=== PATIENT | male | born 1980 | race Caucasian/White ===

== ENCOUNTER 2021-04-03 10:48 | Outpatient (REF) | payer BC, SELFPAY ==
[2021-04-03 14:22] LABS: Glucose Urine UA NEG (NEG); Leukocyte Esterase Urine NEG (NEG); Nitrite Urine NEG (NEG); Specific Gravity - Urine 1.015 (1.005-1.025); Urine Blood NEG (NEG); Urine Ketones NEG (NEG); Urine Protein TRACE MG/DL (NEG-TRACE)
[2021-04-03 14:26] LABS: Appearance Urine CLEAR; Color Urine YELLOW
[2021-04-03 15:07] LABS: Alanine Aminotransferase 56 U/L (0-40); Albumin Level 4.5 g/dL (3.5-5.0); Alkaline Phosphatase 105 U/L (39-117); Anion Gap 12 (12-20); Aspartate Amino Transferase 43 U/L (5-37); Bilirubin Total 0.4 mg/dL (0.0-1.0); Blood Urea Nitrogen 9 mg/dL (9-16); Calcium 9.5 mg/dL (8.4-10.2); Carbon Dioxide 28 mmol/L (22-29); Chloride 104 mmol/L (96-108); Cholesterol 208 mg/dL; Estimated Glomerular Filt Rate > 60; Glucose Fasting 95 mg/dL (60-99); HDL Cholesterol 57 mg/dL; LDL Cholesterol Calculated 118 mg/dl; Potassium 4.2 mmol/L (3.3-5.1); Sodium 140 mmol/L (135-145); Total Protein 7.4 g/dL (6.5-8.0); Triglycerides 166 mg/dL
== END 2021-04-03 10:49 | disposition home or self-care (01) ==
LOC: HO.WFDLDS 10:48
PROVIDERS: Visit Provider Family Medicine
DX: Z00.00 Encounter for general adult medical examination without abnormal findings (principal)
CPT/HCPCS: 36415; 80053; 80061; 81003; 84443

== ENCOUNTER → 2021-07-14 13:43 | Outpatient (BNVA) | payer OTHER, SELFPAY | PROVIDERS: PCP Family Medicine; Visit Provider Nurse Practitioner ==

== ENCOUNTER 2021-09-25 08:27 | Day surgery (SDC) | payer OTHER, SELFPAY ==
[2021-09-18 16:16] VITALS: BMI 40.0
--- NOTE | 2021-09-24 10:32 | P.CONAN_ITS ---
Documented by User: Paty Brower NP 09/24/21 10:34 HPI - Anesthesia Eval Consult details Narrative: 41yo M for Upper Endoscopy and Colonoscopy [facility] Active Problems Active Problems: All Active Problems (Updated 07/14/21 @ 14:54 by JOAN Ravi) Morbid obesity (Acute) Family history of colon cancer in father (Acute) Annual physical exam (Acute) Elevated transaminase level (Acute) History of Solano's esophagus (Acute) Laboratory examination ordered as part of a routine general medical examination (Acute) GERD (gastroesophageal reflux disease) (Acute) Obesity, morbid, BMI 40.0-49.9 (Acute) Past Medical History Medical History (Updated 09/24/21 @ 10:33 by Paty Brower NP) GERD (gastroesophageal reflux disease) Obesity, morbid, BMI 40.0-49.9 Family History Family History Mother No problems noted. Father Lung cancer Mental health disorder Surgical History Surgical History (Updated 07/14/21 @ 13:44 by NAVID Chiang) History of appendectomy History of esophagogastroduodenoscopy (EGD) Hx of colonoscopy Social History Social History Housing: House Alcohol intake: current Alcohol intake frequency: holidays/special occasions only Patient Tobacco Use Status: Never used Tobacco Use of substances other than those prescribed or required for medical reasons: No Are you DNR?: No Advance Directives: No Advance Directives Information Provided: Yes Recently lost weight without trying: No Nutrition Risks: No Nutritional Risk service: No Current occupational status: employed Meds Allergies Allergy/AdvReac Type Severity Reaction Status Date / Time No Known Allergies Allergy Verified 06/20/21 08:54 Exam Exam Date and Time: September 24, 2021 1032 Height,Weight and Vital Signs: Height 5 ft 10 in Weight 126.552 kg Pertinent Lab Results Pertinent Lab Results: Laboratory Tests 04/03/21 10:55 Sodium 140 Potassium 4.2 Chloride 104 Carbon Dioxide 28 BUN 9 Creatinine 0.88 Assessment and Plan Assessment Anesthesia Assessment: Chart Reviewed Documented by User: Suresh Norris 09/25/21 09:17 [facility] Past Medical History Medical History (Updated 09/24/21 @ 10:33 by Paty Brower NP) GERD (gastroesophageal reflux disease) Obesity, morbid, BMI 40.0-49.9 Functional capacity: independent ambulation Family History Family History Mother No problems noted. Father Lung cancer Mental health disorder Family history of problems with anesthesia: No Surgical History Surgical History (Updated 07/14/21 @ 13:44 by NAVID Chiang) History of appendectomy History of esophagogastroduodenoscopy (EGD) Hx of colonoscopy History of Problems with Anesthesia: No Social History Social History Housing: House Alcohol intake: current Alcohol intake frequency: holidays/special occasions only Patient Tobacco Use Status: Never used Tobacco Use of substances other than those prescribed or required for medical reasons: No Are you DNR?: No Advance Directives: No Advance Directives Information Provided: Yes Recently lost weight without trying: No Nutrition Risks: No Nutritional Risk service: No Current occupational status: employed Meds Allergies Allergy/AdvReac Type Severity Reaction Status Date / Time No Known Allergies Allergy Verified 06/20/21 08:54 Exam Airway Mallampati Class: II Neck ROM: Full Loose/Missing/Broken Teeth: No Heart: rrr Lungs: bl breath sounds Assessment and Plan Final Anesthetic Review Family History of Problems with Anesthesia: No History of Problems with Anesthesia: No NPO: Yes ASA Class: III Final Preanesthetic Review: Meds/Allgs Chart Reviewed and Anes Risks/Benef Reviewed Patient Risk: Intermediate Procedure Risk: Intermediate Anesthetic Plan Anesthetic Plan: MAC: Disposition: Standard PACU
[2021-09-25 08:32] VITALS: BMI 38.9
[2021-09-25 08:39] VITALS: BP 140/86; PULSE 91; RESP 16; TEMP 36.2; O2SAT 96
[2021-09-25] MEDS: Lactated Ringers 1,000 ML 100 ML IVCONT (08:56)
--- NOTE | 2021-09-25 09:34 | MHC.SHP ---
Pre-Procedural Eval Section A Date of Service: 09/25/21 Section B Chief Complaint: hx of barretts, family hx of colon cancer, GERD Relevant Family History (Specify if Yes): Yes Relevant Social History: None Present Medications: see Short Stay Collaborative assessment Medical History: Significant History (GERD (gastroesophageal reflux disease) Obesity, morbid, BMI 40.0-49.9) History of Previous Operations: Relevant previous surgery/procedure and date(s) (History of appendectomy History of esophagogastroduodenoscopy (EGD) Hx of colonoscopy) Allergies: Allergies Allergy/AdvReac Type Severity Reaction Status Date / Time No Known Allergies Allergy Verified 06/20/21 08:54 Review of Systems Sugical H&P ROS: Negative: Constitution, Cardiovascular, Respiratory, Neurological, Psychiatric, Hem-Onc, Allergic/Immunologic, Gastrointestinal, Genitourinary, Musculoskeletal, Integumentary, Endocrine and Eyes/Ears/Nose/Throat Exam Surgical H&P Exam: Normal: HEENT, Normal: Heart, Normal: Lungs, Normal: Extremities, Normal: Abdomen, Normal: Skin and Normal: Neurological Plan Diagnosis/Plan: Unchanged I have reviewed the history and physical and performed a pertinent physical examination on my patient. No changes have occurred unless specified.
--- NOTE | 2021-09-25 09:35 | PM.OP ---
Brief Operative Note Date of Service: 09/25/21 Pre-op diagnosis: GERD, FH of CRC Post-op diagnosis: same Procedure: see op note Surgeon: Aj Lynne MD Anesthesia: MAC Was an Linux Unix System Administrator used for this Procedure?: No Estimated blood loss (mL): 0 Condition: stable Disposition: PACU
--- NOTE | 2021-09-25 09:35 | W.PM.OPN ---
Operative Note Operative Note Date of Service: 09/25/21 Narrative: Operative Information Procedure Description: EGD, Colonoscopy FLEXIBLE TRANSORAL UPPER GASTROINTESTINAL ENDOSCOPY AND COLONOSCOPY PROCEDURE NOTE UPPER ENDOSCOPY Consent: Indications for the procedure and potential complications of bleeding, perforation, reaction to medications and missed diagnosis were discussed with the patient and informed consent was obtained. Instrument: Olympus GIF H 190 J mid size upper endoscope Monitoring: Vital signs and clinical assessment, continuous EKG monitoring, Pulse oximetry, Carbon Dioxide monitoring and blood pressure monitoring were done throughout the procedure. Procedure: The patient was placed in the left lateral decubitis position and pre-procedure medications were administered and a bite block was placed. The endoscope was inserted into the mouth and advanced under direct vision to the third part of duodenum. A careful inspection was made as the upper endoscope was withdrawn including a retroflexed examination of the proximal stomach; Findings and interventions are described below. Findings: Larynx:normal Esophagus: GE junction at 35 cm, diaphragm hiatus at 40 cm, consistent with 5 cm sliding hiatal hernia. There was a 10 cm segment of barretts apeparing mucosa from 35-25 cm, no focal nodularity noted. WATS 3D brushings taken as well as random bx of the area. Stomach: Mild gastritis. Biopsies were obtained. Grade 2 flap valve on retroflexed examination of the cardia. Duodenum: Normal bulb and descending duodenum, bx taken Intervention: Biopsies as noted above COLONOSCOPY Instrument: Olympus variable stiffness pediatric scope 190L Colonoscopy Monitoring: Vital signs and clinical assessment, continuous EKG monitoring, Pulse oximetry, Carbon Dioxide monitoring and blood pressure monitoring were done throughout the procedure. Colon withdrawal time was 6 minutes. Procedure: The patient was placed in the left lateral decubitis position and pre-procedure medications were administered. After a digital rectal examination of the ano-rectum, the video colonoscope was inserted into the rectum and advanced through the colon to the cecum/TI. The colonoscope was slowly withdrawn in a retrograde panoramic fashion and the colon mucosa was carefully examined including a retroflexed view of the rectum. Findings and interventions are described below. Procedure Difficulty: easy Findings: Terminal Ileum-normal Cecum:normal Right sided retroflexion was normal Ascending Colon: normal Transverse Colon -normal Descending Colon:normal Sigmoid Colon: mild to moderate diverticulosis Rectum: Retroflexion with small internal hemorrhoids, grade I Anorectum - normal Colon preparation: Sarah Ann Bowel Preparation Scale Right colon; 3 Transverse colon: 3 Left colon; 3 (0 = Unprepared colon segment with mucosa not seen due to solid stool that cannot be cleared. 1 = Portion of mucosa of the colon segment seen, but other areas of the colon segment not well seen due to staining, residual stool and/or opaque liquid. 2 = Minor amount of residual staining, small fragments of stool and/or opaque liquid, but mucosa of colon segment seen well. 3 = Entire mucosa of colon segment seen well with no residual staining, small fragments of stool or opaque liquid) Impression and Post Procedure Diagnosis: Endoscopy Findings: hiatal hernia barretts esophagus gastritis Colonoscopy Findings: internal hemorrhoids diverticular disease Plan: Await Pathology results Repeat Colonoscopy in 5 years due to FH or earlier if clinically indicated High fiber diet leaflet avoid straining at stool, epsom salts and sitz bath, anusol supps or cream repeat EGD in 6-12 months with [place] protocol for bx and repeat WATS 3D. I think he would benefit from surgical consult for repair of hiatal hernia and possible fundoplication -will discuss with him Above findings were reviewed with the patient and relevant handouts were provided if indicated.
[2021-09-25 10:37] VITALS: BP 130/72; PULSE 82; RESP 15; TEMP 36.2; O2SAT 99
[2021-09-25 10:52] VITALS: BP 135/84; PULSE 84; RESP 16; TEMP 36.2; O2SAT 99
== END 2021-09-25 11:16 | disposition home or self-care (01) ==
PROVIDERS: PCP Family Medicine; Visit Provider Internal Medicine Gastroenterology
PROC: (CPT 45378; principal; 2021-09-25 09:40)
DX: Z12.11 Encounter for screening for malignant neoplasm of colon (principal); Z80.0 Family history of malignant neoplasm of digestive organs; K57.30 Diverticulosis of large intestine without perforation or abscess without bleeding; K64.0 First degree hemorrhoids; K21.9 Gastro-esophageal reflux disease without esophagitis; K22.70 Barrett's esophagus without dysplasia; K29.50 Unspecified chronic gastritis without bleeding; K44.9 Diaphragmatic hernia without obstruction or gangrene; E66.01 Morbid (severe) obesity due to excess calories; R74.01 Elevation of levels of liver transaminase levels; Z79.899 Other long term (current) drug therapy
CPT/HCPCS: 45378; 43239; 88305; 88342

== ENCOUNTER 2021-10-15 08:38 | Outpatient (REF) | payer OTHER, SELFPAY ==
[2021-10-16 15:35] LABS: H Pylori Breath Test Negative (Negative)
== END 2021-10-15 08:39 | disposition home or self-care (01) ==
LOC: HO.LNP 08:38
PROVIDERS: PCP Family Medicine; Referring Provider Family Medicine; Visit Provider Internal Medicine Gastroenterology
DX: K90.0 Celiac disease (principal); Z11.0 Encounter for screening for intestinal infectious diseases
CPT/HCPCS: 83013

== ENCOUNTER → 2021-10-24 08:35 | Outpatient (BNVA) | payer OTHER, SELFPAY | PROVIDERS: PCP Family Medicine; Visit Provider Surgery | DX: K44.0 Diaphragmatic hernia with obstruction, without gangrene (principal); K21.9 Gastro-esophageal reflux disease without esophagitis; K22.70 Barrett's esophagus without dysplasia; E66.01 Morbid (severe) obesity due to excess calories; Z79.899 Other long term (current) drug therapy | CPT/HCPCS: 99212 ==

== ENCOUNTER 2024-11-21 09:08 | Outpatient (REF) | payer BC, SELFPAY ==
--- NOTE | ~2024-11-21 | US_ITS ---
EXAMINATION: US LOWER EXTREMITY VEINS LIMITED FOLLOW UP LEFT HISTORY: R60.0 - Localized edema COMPARISON: There are no prior studies for comparison. TECHNIQUE: Duplex and color Doppler sonographic examination of the deep venous system of the left lower extremity was performed. FINDINGS: The common femoral, superficial femoral, and popliteal veins are patent demonstrating normal compressibility, spontaneous flow, and augmentation. There is a normal color and spectral Doppler waveform appearance of the visualized deep venous system above the knee. The posterior tibial and peroneal veins are patent. US/US venous duplex LE LT IMPRESSION: No evidence of acute DVT in the left lower extremity. Electronically signed by: Ariel Mcallister MD 11/21/2024 03:25 PM KARLI
--- OUTSIDE RECORDS SUMMARY | 2024-11-21 15:31 | XMS_ITS | Clinical Summary ---
Author Organization [facility] Address [address] [place] [address] Care Team Providers Care Book Or Script Editor Name Role Phone Cristy Georges MD Primary Care Provider Unav ailable Surgical History Surgery Date Site/Laterality Comments APPENDECTOMY PROCEDURE: HISTORICAL APPENDECTOMY OTHER SURGICAL HISTORY surgery on kidney - PROCEDURE: [place] NEPHROLITHOTOMY COMP CGEN KDN ABNORMALITY ESOPHAGOGASTRODUODENOSCOPY 12/11/2005 PROCEDURE: OR ESOPHAGOGASTRODUODENOSCOPY TRANSORAL DIAGNOSTIC; COMMENT: Dr Stone: 3 [...] age to complete this topic Care Teams Book Or Script Editor Relationship Specialty Start Date End Date Cristy Georges MD PCP - General Internal Medicine 09/11/13
== END 2024-11-21 09:09 | disposition home or self-care (01) ==
LOC: HO.XRAY 09:08
PROVIDERS: PCP Nurse Practitioner Family; Visit Provider Nurse Practitioner Family
DX: R60.0 Localized edema (principal); E66.01 Morbid (severe) obesity due to excess calories; Z68.41 Body mass index [BMI] 40.0-44.9, adult; K21.00 Gastro-esophageal reflux disease with esophagitis, without bleeding; Z87.19 Personal history of other diseases of the digestive system; Z23 Encounter for immunization
CPT/HCPCS: 90471; 90715; 93971; 96127

== ENCOUNTER 2024-11-21 09:08 | Outpatient (AMB) | payer BC, SELFPAY ==
--- NOTE | 2024-11-21 09:22 | A.OFFPC_ITS ---
Vital Signs 11/21/24 09:27 Height 5 ft 10 in Weight 312 lb 8 oz BMI 44.8 BP 136/80 Blood Pressure Location Lt brachial Position Sitting Respiration 16 Pulse 94 Pulse Source Pulse Oximeter Pulse Oximetry (%) 96 Oxygen Delivery Method Room Air Intake Visit Reasons: Est. Care Intake Note: New patient visit Plater Barrel Required: No Allergies No Known Allergies Allergy (Verified 11/21/24 09:47) Medication List - Last Reconciled 11/21/24 by Vannesa Davis [facility] omeprazole 40 mg PO DAILY Tobacco use date assessed: 11/21/24 Dental Screening Dental Screen Date: 11/21/24 Did you have a dental visit in the last 12 months?: Yes Did you have a dental problem in the last 6 months where you did not have access to dental care?: No Was dental information given to patient?: No HPI HPI Comments History of Present Illness Details 44 y/o M with GERD, barretts esoph, Fatt y liver, hld , obese SurgHx:: Appy age 14, Kidney surgery at [facility]: Dad: Lung Ca Schizophrenia. Mom Breast Ca SocHx: Nonsmoker, EtOH Occassional. No Drugs. 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 No pain. Sedentary job. Tingling when getting up. Cont to be swollen. Denies pain. No surgery. No smoking. Reports normal sensation Feels anxious; this is new; not his baseline. Traveled for work. Now home. Needs Tdap will get today GERD/Barretts: on PPI. referred back to [facility] Snores. Has never had sleep study Exam Awake alert NAD PERRLA, EOMI RRR LS CTAB +1 edema LLE,decreased PP, skin intact, RLE no edema normal PP Mildly anxious, pleasant and cooperative I plan to obtain urgent diagnostic imaging with a stat ultrasound to rule out deep vein thrombosis in the left leg, given the presentation of unilateral lower extremity swelling persisting for over three months. Concurrently, I will order a panel of blood tests to investigate underlying causes that might contribute to his swelling and anxiety. For the patient's Solano's Esophagus, I will ensure a referral to gastroenterology for a scheduled follow-up visit, as ongoing monitoring is crucial. The patient will continue his current medication, omeprazole. Due to the patient's history of anxiety and recent symptoms, I discuss stress management strategies, lifestyle modifications for improved nutritional habits, and adherence to better weight management, given that he is no longer hindered by extensive travel. A Tdap vaccine is administered today to ensure current immunization status, considering the available history. Follow-up is planned for one week to reassess the leg swelling and review diagnostic results, with encouragement to use the patient portal for any developments that require immediate attention. Plan Labs US Tdap RTO 1 week to f/u on labs consider sleep study for c/o snoring Total time spent caring for the patient today was 40 minutes. This includes time spent before the visit reviewing the chart, time spent during the visit, and time spent after the visit on documentation, reviewing laboratory results, diagnostic imaging, medications, performing a medically necessary evaluation, counseling on diagnoses, care coordination, ordering appropriate tests, ordering appropriate medications, review of tests performed by other providers, reporting test results with the patient, communication with other healthcare providers. [facility] Medical History (Updated 11/21/24 @ 10:42 by Vannesa Davis, [facility]) Celiac disease Family history of colon cancer in father GERD (gastroesophageal reflux disease) History of Solano's esophagus Morbid obesity Surgical History History of colonoscopy (~2020) History of esophagogastroduodenoscopy (EGD) (~2020) History of appendectomy (~1993) Family History Mother No problems noted. 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 1. Little interest or pleasure in doing things: not at all 2. Feeling down, depressed, or hopeless: not at all 3. Trouble falling or staying asleep, or sleeping too much: not at all 4. Feeling tired or having little energy: not at all 5. Poor appetite or overeating: not at all 6. Feeling bad about yourself - or that you are a failure or have let yourself or your family down: not at all 7. Trouble concentrating on things, such as reading the newspaper or watching television: not at all 8. Moving or speaking so slowly that other people could have noticed. Or the opposite - being so fidgety or restless that you have been moving around a lot more than usual: not at all 9. Thoughts that you would be better off or of hurting yourself in some way: not at all Total score: 0 Depression Screening Interpretation: Negative Depression Screening Done: Yes 02655 - PHQ-9 Billing: Yes Source: Developed by Drs. Ariel Whittington, Lanette Macario, Blaine Mauricio and colleagues, with an educational tawanda from [employer]. Thrive Questionnaire Date Thrive assessed: 11/21/24 I am a: Patient What is your living situation today?: I have a steady place to live Within the past 12 months, did the food you bought not last and you didn't have the money to get more?: Never true Within the past 12 months, did you worry whether your food would run out before you got money to buy more?: Never true Do you have trouble paying for medicines?: No Do you have trouble getting transportation to medical appointments?: No Do you have trouble paying your heating and electricity bill?: No Do you have trouble taking care of your child, family member or friend?: No Do you have trouble with day-to-day activities such as bathing, preparing meals, shopping, managing finances, etc.?: No Are you currently unemployed and looking for a job?: No Are you interested in more education?: No Please select the resources that you would like help with: None Currently or been in a relationship where the following occur: No concerns reported THRIVE Score: 0 AUDIT C Alcohol Use Questionnaire (AUDIT-C) 1. How often do you have a drink containing alcohol?: 2-4 times a month 2. How many drinks containing alcohol do you have on a typical day when you are drinking?: 1 or 2 3. How often do you have six or more drinks on one occasion?: Never Total Score: 2 Score Reviewed/Action Taken: Yes HASMUKH-7 AMB Questionnaire HASMUKH-7 Date HASMUKH - 7 assessed: 11/21/24 Feeling nervous, anxious, or on edge: 2 = More than half the days Not being able to stop or control worryin = More than half the days Worrying too much about different things: 2 = More than half the days Trouble relaxin = More than half the days Being so restless that it is hard to sit still: 0 = Not at all Becoming easily annoyed or irritable: 2 = More than half the days Feeling afraid as if something awful might happen: 0 = Not at all Total HASMUKH-7 score (0-4 normal; 5-9 mild; 10-14 moderate; 15-21 severe): 10 Source: Developed by Drs. Ariel Whittington, Lanette Macario, Blaine Mauricio and colleagues, with an educational tawanda from [employer]. HASMUKH-7 Assessment Billing HASMUKH-7 Assessment Tool: HASMUKH-7 Assessment 46738 Physical exam (Primary Care) Vital Signs: Last Vital Signs Pulse 94 11/21/24 09:27 Resp 16 11/21/24 09:27 BP 136/80 11/21/24 09:27 Pulse Ox 96 11/21/24 09:27 Oxygen Delivery Method Room Air 11/21/24 09:27 BMI result Body Mass Index 44.8 BMI Assessment/Plan discussion: High BMI High, discussed plan: lifestyle Tobacco/Smoking Status: Tobacco use Status Tobacco use date assessed 11/21/24 11/21/24 09:30 Patient Tobacco Use Status Never used Tobacco 11/21/24 09:27 e-Cigarette/Vaping Use Never Used 11/21/24 09:30 PHQ-9: PHQ-9 Score PHQ-9: Total score 0 11/21/24 09:30 Depression Screening Interpretation: Negative Thrive Assessment: Date of Thrive Assessment Date Thrive assessed 11/21/24 11/21/24 09:30 Currently or been in a relationship where the following occur: No concerns reported Coding Level of Care Code Est Pt Level 5 (99396) Complex EM visit Add On G2211 Diagnoses Edema of left lower extremity R60.0 Morbid obesity with BMI of 40.0-44.9, adult E66.01; Z68.41 Gastroesophageal reflux disease with esophagitis without hemorrhage K21.00 Esophagitis presence: with esophagitis Esophagitis bleeding: without hemorrhage History of Solano's esophagus Z87.19 Need for Tdap vaccination Z23 Additional Codes HASMUKH-7 Assessment Billing - HASMUKH-7 Assessment Tool: HASMUKH-7 Assessment 48264 ([id number]) PHQ-9 - 41993 - PHQ-9 Billing: Yes ([id number]) Assessment & Plan Assessment & Plan (1) Edema of left lower extremity: Code(s): R60.0 - Localized edema Category: Medical (2) Morbid obesity with BMI of 40.0-44.9, adult: Code(s): E66.01 - Morbid (severe) obesity due to excess calories; Z68.41 - Body mass index [BMI] 40.0-44.9, adult Category: Medical (3) GERD (gastroesophageal reflux disease): Code(s): K21.9 - Gastro-esophageal reflux disease without esophagitis Category: Medical Qualifiers: Esophagitis presence: with esophagitis Esophagitis bleeding: without hemorrhage Qualified Code(s): K21.00 - Gastro-esophageal reflux disease with esophagitis, without bleeding (4) History of Solano's esophagus: Code(s): Z87.19 - Personal history of other diseases of the digestive system Category: Medical (5) Need for Tdap vaccination: Code(s): Z23 - Encounter for immunization Category: Medical Plan . Orders: Orders 2 Comprehensive Met. Panel Today E66.01 - Morbid (severe) obesity due to excess calories, R60.0 - Localized edema, Z68.41 - Body mass index [BMI] 40.0-44.9, adult TSH reflex Free T4 Today E66.01 - Morbid (severe) obesity due to excess calories, R60.0 - Localized edema, Z68.41 - Body mass index [BMI] 40.0-44.9, adult Magnesium Today E66.01 - Morbid (severe) obesity due to excess calories, R60.0 - Localized edema, Z68.41 - Body mass index [BMI] 40.0-44.9, adult IRON PROFILE Today E66.01 - Morbid (severe) obesity due to excess calories, R60.0 - Localized edema, Z68.41 - Body mass index [BMI] 40.0-44.9, adult Vitamin B12 and Folate Today E66.01 - Morbid (severe) obesity due to excess calories, R60.0 - Localized edema, Z68.41 - Body mass index [BMI] 40.0-44.9, adult Hemoglobin A1c Today E66.01 - Morbid (severe) obesity due to excess calories, R60.0 - Localized edema, Z68.41 - Body mass index [BMI] 40.0-44.9, adult US venous duplex LE LT Today R60.0 - Localized edema D Dimer High Sensitivity Today E66.01 - Morbid (severe) obesity due to excess calories, R60.0 - Localized edema, Z68.41 - Body mass index [BMI] 40.0-44.9, adult Phosphorus Today E66.01 - Morbid (severe) obesity due to excess calories, R60.0 - Localized edema, Z68.41 - Body mass index [BMI] 40.0-44.9, adult Complete Blood Count no Diff Today E66.01 - Morbid (severe) obesity due to excess calories, R60.0 - Localized edema, Z68.41 - Body mass index [BMI] 40.0- 44.9, adult Lipid Panel Today E66.01 - Morbid (severe) obesity due to excess calories, R60.0 - Localized edema, Z68.41 - Body mass index [BMI] 40.0-44.9, adult Referrals Gastroenterology Referral K21.9 - Gastro-esophageal reflux disease without esophagitis, Z87.19 - Personal history of other diseases of the digestive system Patient Instructions: Walk-In Care (Urgent Care): We Make it Easy Walk-in for urgent medical issues such as: ? Seasonal Allergies ? Insect Bites ? Cough ? Diarrhea ? Acute Asthma Attacks ? Back, Knee or Joint Pain ? Ear Infection ? Fever without a Rash ? Headaches ? Nausea ? [place] [facility], Rash or Skin Irritation ? Sore Throat ? Sports Physicals ? Vomiting Most insurances are accepted. Patients do not need to be part of the [facility] to seek care at the walk-in clinic. Locations [facility] [address]alya [place]campo, [place] [address] ? [phone] [facility]-In [facility] in [place] provides services to ages 18 and over. Open Wednesday-Wednesday: 8 a.m. to 5 p.m. and Wednesday: 9 a.m. to 3 p.m.* *Hours may vary due to staffing availability. To confirm Walk-In Care hours in [place], please call [phone]. [address] [place] [address] ? [phone] [facility] in [place] provides services to ages 12 and over. Open Wednesday-Wednesday: 8 a.m. to 5 p.m. Hours may vary due to staffing availability. To confirm Walk-In Care hours in [place], please call [phone]. LABORATORY SERVICES: [facility] ? Primary Location [address] [place] [address] Wednesday through Wednesday 6:00 AM ? 5:00 PM Wednesday 7:00 AM ? 11:00 AM* [phone] The [facility] is centrally located near the front entrance of the [facility] for easy outpatient access. Convenient parking is provided for outpatients. *Hours may vary due to staffing availability. To confirm Laboratory hours for any location, please call [phone]. Offsite Location For your convenience, we offer offsite laboratory draw stations at the following locations: [address] [place] [address] ? [address], [address] Wednesday through Wednesday 7:30 AM ? 1:00 PM* [phone] *Hours may vary due to staffing availability. To confirm Laboratory hours for any location, please call [phone]. [place] ? [address] Wednesday through Wednesday 6:00 AM ? 3:30 PM* Wednesday 6:30 AM ? 3 PM* [phone] *Hours may vary due to staffing availability. To confirm Laboratory hours for any location, please call [phone] [place] [address] Wednesday through Wednesday 7:30 AM ? 4:00 PM* [phone] *Hours may vary due to staffing availability. To confirm Laboratory hours for any location, please call [phone] [place], [place] [address]esday through 9:00 AM ? 4:00 PM* *Hours may vary due to staffing availability. To confirm Laboratory hours for any location, please call [phone]. Appointments are not necessary. Walk-ins are welcome. Like all the departments throughout the [facility], our Lab undergoes frequent reviews to ensure the quality and accuracy of test results, and our staff takes special pride in its status as a nationally accredited facility. Patient Portal: ONE PATIENT. ONE RECORD. BETTER CARE. [facility] has a fully integrated, cutting- edge mobile electronic health information system that has revolutionized the way we care for our patients and manage our organization. This system improves communication and coordination enabling us to provide safe, higher-quality care, and an overall positive experience for staff and patients. Our first priority, as always, is to deliver the highest quality care possible. The system is running in the background supporting that priority. This portal is for all [facility] services and practices. If you are experiencing any technical difficulties with enrolling or logging into the Patient Portal please complete the [facility] Patient Portal Technical Support Form. [facility] now offers a new secure on-line interactive tool for patients to review their health information ? ?Patient Portal. This interactive web portal will enable patients and their families to take an active role in their care by providing easy, secure access to their health information via the internet. The Patient Portal provides patients with instant access to their health information, including laboratory results, medications, allergies, demographic information, visit history, and more. In addition to managing their own care, parents and health care proxies with authorized consent will appreciate the ability to access the records of those individuals for whom they provide care. Please note: if you wish to gain access (Proxy) to another patient?s portal, you will be required to come to the Medical Records Department in person at [facility]. Both the patient giving proxy access and the proxy will need to provide photo identification and complete the appropriate authorization. The Patient Portal also allows track their appointments online. The [facility] Patient Portal also saves patients time by allowing them to submit updates to their demographic and contact information prior to their visits. Portal email notifications will also alert patients to any new activity on their portal, such as test results and new appointments. In order to initially enroll in the [facility] Patient Portal, you will need to enter some required information including the following: * your [facility] Medical Record number * your personal home email address * name * date of Please note: In order to enroll in the [facility] Patient Portal, we need to have your email address on file in your electronic medical record. ?The email address needs to be specific for one person (yourself) in order for your Portal enrollment to be successful. ?You can update your email address in person with our Registration staff when you are registering for a hospital visit. ?Otherwise, you will need to come to the Health Information Management (Medical Records) Department at [facility]. ?We are open from Wednesday ? Wednesday from 7:30 a.m. ? 4:30 p.m. ?You will be required to present a photo id. Once you have successfully enrolled in the Patient Portal, you will receive a one-time user id and password for the Portal, sent to your email address. ?This will allow you to log into the Patient Portal within 99 hrs and reset your own logon id and password, and define personal security questions. ?Once your permanent login and password have been set, you can log into the [facility] Patient Portal at any time via the blue button above or from the Portal Logon button on any page of the [facility] website. [facility] encourage all of our patients to enroll in Patient Portal as it presents a valuable opportunity for patients and their families to actively participate in their care and stay healthy Welcome to [facility]. ?We look forward to working with you. - Attend the stat ultrasound appointment today for left leg. - Obtain blood work today for further evaluation. - Follow up in one week with primary care or Dr. Medina for further evaluation of leg swelling and lab results. - Consult gastroenterology for continued management of Solano's Esophagus. - Continue current omeprazole regimen. - Maintain communication via the patient portal for prompt updates and clarifications. - Consider lifestyle modifications: improved nutrition now that travel is r educed. - Notify the office immediately via portal if experiencing worsening symptoms.
[2024-11-21 09:27] VITALS: BP 136/80; PULSE 94; RESP 16; O2SAT 96; BMI 44.8
--- OUTSIDE RECORDS SUMMARY | 2024-11-21 10:02 | XMS_ITS | Clinical Summary ---
Author Organization [facility] Address [address] [place] [address] Care Team Providers Care Heel Sander [employer]ber Name Role Phone Cristy Georges MD Primary Care Provider Unav ailable Surgical History Surgery Date Site/Laterality Comments APPENDECTOMY PROCEDURE: HISTORICAL APPENDECTOMY OTHER SURGICAL HISTORY surgery on kidney - PROCEDURE: DC NEPHROLITHOTOMY COMP CGEN KDN ABNORMALITY ESOPHAGOGASTRODUODENOSCOPY 12/11/2005 PROCEDURE: DC ESOPHAGOGASTRODUODENOSCOPY TRANSORAL DIAGNOSTIC; COMMENT: Dr Stone: 3 cm H/H and erosive esophagitis COLONOSCOPY 11/24/13 Dr Garza PROCEDURE: HISTORICAL COLONOSCOPY; COMMENT: negative CN to terminal ileum OTHER SURGICAL HISTORY 11/24/13 Dr Garza PROCEDURE: UPPER GASTROINTESTINAL ENDOSCOPY IN; COMMENT: esophagitis, Bx positive for Solano's w/o dysplasia; repeat in 2 years. Medical History Medical History Date Comments Heartburn 10/26/2005 DX:Heartburn; CO MMENT: Upper endoscopy 2005- evidence of reflux ; prilosec caused chest pain cpx 12/12/10: worsening heartburn ; Has lost some weight - no help; using tums and ana-seltzer. Referred back to GI. Genital warts 12/18/2011 DX:Genital warts Solano's esophagus without dysplasia 11/24/13 DX:Solano's esophagus without dysplasia; COMMENT: Dr Garza - EGD; repeat in 2015 Family History Relation Name Status Comments Daughter Alive born 2012 Father Alive acid reflux Maternal Grandfather Maternal Grandmother Alive smoker, Copd Mother Alive Paternal Grandfather Alive colon C A age onset 62 Paternal Grandmother Alive healthy Sister Alive 5 yr younger, h ealthy Son Alive born 2007 Social History Tobacco Use Types Packs/Day Years Used Date Smoking Tobacco: Never Smokeless Tobacco: Never Alcohol Use Standard Drinks/Week Comments Yes 0 (1 standard drink = 0.6 oz pur e alcohol) Sex and Gender Information Value Date Recorded Sex Assigned at Not on file Legal Sex Male 8:07 AM EST Gender Identity Not on file Sexual Orientation Not on file Obstetrics History Plan of Treatment Health Maintenance Due Date Last Done Comments Hepatitis B Vaccines (1 of 3 - 19+ 3-dose series) 2001 DTaP,Tdap,and Td Vaccines (2 - Td or Tdap) 01/09/2011 12/12/2010 Cholesterol Screening (Lipid Panel) 09/13/2022 Depression Screening 09/13/2022 HIV Screening 09/13/2022 Hepatitis C Screening 09/13/2022 Social Influencers of Health Screening 09/13/2022 COVID-19 Vaccine (2023-2 5 season) 2024 Influenza Vaccine (#1) 2024 HIB Vaccines Aged Out No longer eligi ble based on patient's age to complete this topic HPV Vaccines Aged Out No longer eligi ble based on patient's age to complete this topic Hepatitis A Vaccines Aged Out No long er eligible based on patient's age to complete this topic IPV Vaccines Aged Out No longer eligi ble based on patient's age to complete this topic MMR Vaccines Aged Out No longer eligi ble based on patient's age to complete this topic Meningococcal ACWY Vaccine Aged Out N o longer eligible based on patient's age to complete this topic Meningococcal B Vacine Aged Out No lo nger eligible based on patient's age to complete this topic Pneumococcal Vaccine: Pediat rics (0 to 5 Years) and At-Risk Patients (6 to 64 Years) Aged Out No longer eligi ble based on patient's age to complete this topic RSV Immunization Patients Un andreina 20 months Aged Out No longer eligible b ased on patient's age to complete this topic Varicella Vaccines Aged Out No longer eligible based on patient's age to complete this topic Care Teams Heel Sander Rubber Relationship Specialty Start Date End Date Cristy Georges MD PCP - General Internal Medicine 09/11/13
== END 2024-11-21 10:58 | disposition home or self-care (01) ==
PROVIDERS: PCP Nurse Practitioner Family; Visit Provider Nurse Practitioner Family
DX: R60.0 Localized edema (principal); E66.01 Morbid (severe) obesity due to excess calories; Z68.41 Body mass index [BMI] 40.0-44.9, adult; K21.00 Gastro-esophageal reflux disease with esophagitis, without bleeding; Z87.19 Personal history of other diseases of the digestive system; Z23 Encounter for immunization

== ENCOUNTER 2024-11-21 11:02 | Outpatient (REF) | payer BC, SELFPAY ==
--- OUTSIDE RECORDS SUMMARY | 2024-11-21 12:30 | XMS_ITS | Clinical Summary ---
Author Organization [facility] Address [address] [place] [address] Care Team Providers Care Line Patrolman Name Role Phone Cristy Georges MD Primary Care Provider Unav ailable Surgical History Surgery Date Site/Laterality Comments APPENDECTOMY PROCEDURE: HISTORICAL APPENDECTOMY OTHER SURGICAL HISTORY surgery on kidney - PROCEDURE: [place] NEPHROLITHOTOMY COMP CGEN KDN ABNORMALITY ESOPHAGOGASTRODUODENOSCOPY 12/11/2005 PROCEDURE: [place] ESOPHAGOGASTRODUODENOSCOPY TRANSORAL DIAGNOSTIC; COMMENT: Dr Stone: 3 [...] age to complete this topic Care Teams Line Patrolman Relationship Specialty Start Date End Date Cristy Georges MD PCP - General Internal Medicine 09/11/13
[2024-11-21 14:21] LABS: Hematocrit 41.9 % (42.0-52.0); Hemoglobin 13.8 g/dl (14.0-18.0); Mean Corpuscular HGB Conc 32.9 g/dl (31.0-36.0); Mean Corpuscular Hemoglobin 28.2 pg (27.0-33.0); Mean Corpuscular Volume 85.7 fL (80.0-98.0); Mean Platelet Volume 10.4 fL (9.4-12.4); Platelet Count 184 X10*3/uL (160-400); Red Blood Count 4.89 X10*6/uL (4.60-5.80); Red Cell Distribution Width 13.4 % (11.0-16.0); White Blood Count 7.8 X10*3/uL (4.8-10.8)
[2024-11-21 14:31] LABS: Estimated Average Glucose 120 mg/dL; Hemoglobin A1c % 5.8 % (<6.0)
[2024-11-21 15:00] LABS: D Dimer High Sensitivity < 150 NG/ML
[2024-11-21 15:39] LABS: Alanine Aminotransferase 69 U/L (0-40); Albumin Level 4.3 g/dL (3.5-5.0); Anion Gap 12 (12-20); Aspartate Amino Transferase 46 U/L (5-37); Bilirubin Total 0.4 mg/dL (0.0-1.0); Blood Urea Nitrogen 14 mg/dL (9-16); Calcium 9.4 mg/dL (8.4-10.2); Carbon Dioxide 25 mmol/L (22-29); Chloride 105 mmol/L (96-108); Cholesterol 214 mg/dL (<200); Estimated Glomerular Filt Rate > 60; Glucose Random 94 mg/dL (60-115); HDL Cholesterol 50 mg/dL (>40); Iron 60 mcg/dL (45-160); LDL Cholesterol Calculated 118 mg/dL (<100); Percent Iron Saturation 16 % (15-50); Phosphorus 3.9 mg/dL (2.7-4.5); Potassium 4.1 mmol/L (3.3-5.1); Sodium 138 mmol/L (135-145); TSH reflex Free T4 2.71 uIU/mL (0.32-4.0); Total Iron Binding Capacity 375 mcg/dL (228-428); Total Protein 8.1 g/dL (6.5-8.0); Triglycerides 230 mg/dL (<150); Unsaturated Iron Binding 315 ug/dL
[2024-11-21 15:54] LABS: Folate 7.5 ng/mL (> or = 4.0); Vitamin B12 409 pg/mL (200-900)
[2024-11-21 17:29] LABS: Alkaline Phosphatase 114 U/L (39-117)
== END 2024-11-21 11:03 | disposition home or self-care (01) ==
LOC: HO.WFDLDS 11:02
PROVIDERS: Visit Provider Nurse Practitioner Family
DX: R60.0 Localized edema (principal); E66.01 Morbid (severe) obesity due to excess calories; Z68.41 Body mass index [BMI] 40.0-44.9, adult; Z13.1 Encounter for screening for diabetes mellitus
CPT/HCPCS: 36415; 80053; 80061; 82607; 82746; 83036; 83540; 83735; 84100; 84443; 85027; 85379

== ENCOUNTER → 2024-11-21 14:38 | Outpatient (BNV) | payer BC, SELFPAY | PROVIDERS: PCP Nurse Practitioner Family; Visit Provider Radiology Diagnostic Radiology | DX: R60.0 Localized edema (principal) | CPT/HCPCS: 93971 ==

== ENCOUNTER 2024-12-04 12:51 | Outpatient (AMB) | payer BC, SELFPAY ==
--- NOTE | 2024-12-04 12:53 | A.OFFPC_ITS ---
Vital Signs 12/04/24 12:56 Height 5 ft 10 in Weight 314 lb 4 oz BMI 45.1 BP 134/76 Blood Pressure Location Lt brachial Position Sitting Respiration 13 Pulse 78 Pulse Source Pulse Oximeter Temp 97.2 F Temp Source Oral Pulse Oximetry (%) 97 Oxygen Delivery Method Room Air Intake Visit Reasons: 1 week fu labs edema , ? order sleep study Intake Note: follow up on labs Manager Professional Development Required: No Allergies No Known Allergies Allergy (Verified 12/04/24 13:05) Medication List - Last Reconciled 12/04/24 by Vannesa Davis, [facility]- omeprazole 40 mg PO DAILY Tobacco use date assessed: 12/04/24 Dental Screening Dental Screen Date: 12/04/24 Did you have a dental visit in the last 12 months?: Yes Did you have a dental problem in the last 6 months where you did not have access to dental care?: No Was dental information given to patient?: Patient has dentist HPI HPI Comments History of Present Illness Details 44 y/o M with GERD, barretts esoph, Fatt y liver, hld , obese, prediabetes, anemia, diverticulitis SurgHx:: Appy age 14, Kidney surgery at [facility]: Dad: Lung Ca Schizophrenia. Mom Breast Ca SocHx: Nonsmoker, EtOH Occasional. No Drugs. 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 - Patient has elevated liver enzymes lik katherine due to fatty liver disease; reports social alcohol consumption. - Patient experiences chronic mild anemi a and symptoms consistent with anemia. Was taking Iron in childhood. Stopped 5 years ago. - Noted hyperlipidemia and prediabetes f ollowing lab results, with strong interest in proactive weight management. Was on phentermine in the past; consulted w Dr Montez at [facility] in the past. Not interested in wt mgmt or nitroglycerin separator operator referral @ this time. Tried wellbutrin in the past, caused erectile dysfunction. Did not help anxiety. - Continues to experience anxiety, with no change from before. - Discussed persistent L sidedabdominal pain, unrelated to his known diverticulitis, intermittent, stabbing at times; worse after food intake. - Recurring snoring raises possibility o f sleep apnea. Exam Awake alert NAD PERRLA, EOMI, scleras noniteric bilat RRR LS CTAB abd soft, nontender, normoactive bs x 4, + hepatomegaly trace to +1 edema LLE,decreased PP, skin intact, RLE no edema normal PP Skin to LLE is firm below the knee, no erythema Mildly anxious, pleasant and cooperative Results - Labs: Mild anemia, hyperlipidemia, ajit vated liver enzymes, and A1c of 5.8%. - Imaging: Previous lower extremity ultr asound normal, negative for DVT. - D-dimer test: Negative. Labs from November 212024 show mild anemia hemoglobin 13.8, hematocrit 41.9, otherwise normal, D-dimer negative, lytes, normal renal function, hemoglobin A1c 5.8%, normal calcium phosphorus magnesium and iron, elevated LFTs AST 46, ALT 69 elevated lipid profile to the cholesterol 214, LDL 118, triglycerides 230 in a nonfasting state, HDL 50, TSH Venous Insuff US ordered and pending Discussion Notes During the visit, I explained the diagnostic results and their implications to the patient. We discussed the negative lower extremity ultrasound, reassuring him that the edema is not due to DVT. I elaborated on his lab test findings, specifically the mild anemia, hyperlipidemia, and prediabetes, emphasizing lifestyle modifications and the potential use of metformin to address these issues. We reviewed the possible causes of his elevated liver enzymes, likely owing to fatty liver disease, and I proposed an abdominal ultrasound to further investigate these findings. I addressed the patient's history of snoring, sugge sting an in-home sleep study to assess for sleep apnea, a condition that could contribute to lower extremity edema. The patient agreed with the recommended management strategies, including exploring metformin for its dual benefit on weight loss and prediabetes control, and commencing a multivitamin with iron supplement. Assessment and Plan 1. Bilateral lower extremity edema: Felipe a persists without change. Previous tests ruled out DVT. US Venous Insuff ordered and pending 2. Liver function abnormalities: Elevate d liver enzymes pointed to possible fatty liver disease. An abdominal ultrasound has been advised to further investigate. 3. Mild anemia: The patient's chronic an emia will be addressed with a multivitamin with iron, considering history and previous tolerance. 4. Hyperlipidemia: Lifestyle interventio ns were suggested due to consistent elevated cholesterol levels. 5. Prediabetes: A proactive approach wit h dietary modifications and metformin initiation was discussed due to a confirmed A1c of 5.8%. 6. Anxiety: Anxiety symptoms remain cons istent. Non-pharmacological strategies were emphasized with lifestyle adjustment. 7. Diverticulitis: Distinct condition fr om current abdominal pain, advises ongoing collaboration with GI specialists. 8. Potential sleep apnea: An in-home sle ep evaluation has been proposed to confirm diagnosis and guide intervention. Patient Instructions - Schedule and complete the abdominal ul trasound as advised. - Begin taking the prescribed multivitam in with iron daily with food. - Limit alcohol intake and adopt a diet low in fats and high in fiber. - Consider joining a weight-reduction pr ogram to assist with lifestyle changes. - Prepare for the in-home sleep study an d follow instructions given by the medical center. - Consult a general practitioner if ther e are sudden changes in symptoms, noting any increased swelling, significant fatigue, or unexpected weight loss. - Follow up in eight weeks for reassessm ent, preceded by completing the advised lab tests. Consent I have obtained informed consent from the patient to proceed with the abdominal ultrasound and in-home sleep study. The potential risks, benefits, and alternatives were reviewed, including the importance of accurate diagnostics for guiding subsequent management. Consent was given freely after discussion with the patient, in front of the healthcare team present. Patient was informed and verbally consented to the use of an ambient scribe for clinic note documentation during this visit. Total time spent caring for the patient today was 40 minutes. This includes time spent before the visit reviewing the chart, time spent during the visit, and time spent after the visit on documentation, reviewing laboratory results, diagnostic imaging, medications, performing a medically necessary evaluation, counseling on diagnoses, care coordination, ordering appropriate tests, ordering appropriate medications, review of tests performed by other providers, reporting test results with the patient, communication with other healthcare providers. [facility] Medical History (Updated 12/04/24 @ 16:59 by RENNY Andrews-) Celiac disease Family history of colon cancer in father GERD (gastroesophageal reflux disease) History of Solano's esophagus Morbid obesity Surgical History History of colonoscopy (~2020) History of esophagogastroduodenoscopy (EGD) (~2020) History of appendectomy (~1993) Family History Mother No problems noted. 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 09261 - PHQ-9 Billing: Patient declined-do not bill Source: Developed by Drs. Ariel Whittington, Lanette Macario, Blaine Mauricio and colleagues, with an educational tawanda from [employer]. Thrive Questionnaire Date Thrive assessed: 12/04/24 I am a: Patient What is your living situation today?: I have a steady place to live Within the past 12 months, did the food you bought not last and you didn't have the money to get more?: Never true Within the past 12 months, did you worry whether your food would run out before you got money to buy more?: Never true Do you have trouble paying for medicines?: No Do you have trouble getting transportation to medical appointments?: No Do you have trouble paying your heating and electricity bill?: No Do you have trouble taking care of your child, family member or friend?: No Do you have trouble with day-to-day activities such as bathing, preparing meals, shopping, managing finances, etc.?: No Are you currently unemployed and looking for a job?: No Are you interested in more education?: No Please select the resources that you would like help with: None Currently or been in a relationship where the following occur: No concerns reported THRIVE Score: 0 HASMUKH-7 AMB Questionnaire HASMUKH-7 Date HASMUKH - 7 assessed: 12/04/24 Feeling nervous, anxious, or on edge: 0 = Not at all Not being able to stop or control worryin = Not at all Worrying too much about different things: 0 = Not at all Trouble relaxin = Not at all Being so restless that it is hard to sit still: 0 = Not at all Becoming easily annoyed or irritable: 0 = Not at all Feeling afraid as if something awful might happen: 0 = Not at all Total HASMUKH-7 score (0-4 normal; 5-9 mild; 10-14 moderate; 15-21 severe): 0 Source: Developed by Drs. Ariel Whittington, Lanette Macario, Blaine Mauricio and colleagues, with an educational tawanda from [employer]. Physical exam (Primary Care) Vital Signs: Last Vital Signs Temp 97.2 F 12/04/24 12:56 Pulse 78 12/04/24 12:56 Resp 13 12/04/24 12:56 BP 134/76 12/04/24 12:56 Pulse Ox 97 12/04/24 12:56 Oxygen Delivery Method Room Air 12/04/24 12:56 BMI result Body Mass Index 45.1 Tobacco/Smoking Status: Tobacco use Status Tobacco use date assessed 12/04/24 12/04/24 12:57 Patient Tobacco Use Status Never used Tobacco 12/04/24 12:57 e-Cigarette/Vaping Use Never Used 12/04/24 12:57 Thrive Assessment: Date of Thrive Assessment Date Thrive assessed 12/04/24 12/04/24 12:57 Currently or been in a relationship where the following occur: No concerns reported Coding Level of Care Code Est Pt Level 5 (20532) Complex EM visit Add On G2211 Diagnoses Elevated transaminase level R74.01 Left sided abdominal pain R10.9 Snoring R06.83 Iron deficiency anemia, unspecified iron deficiency anemia type D50.9 Iron deficiency anemia type: unspecified iron deficiency Edema of left lower extremity R60.0 Prediabetes R73.03 Moderate mixed hyperlipidemia not requiring statin therapy E78.2 Hyperlipidemia type: moderate mixed hyperlipidemia not requiring statin therapy Assessment & Plan Assessment & Plan (1) Elevated transaminase level: Code(s): R74.01 - Elevation of levels of liver transaminase levels Category: Medical (2) Left sided abdominal pain: Code(s): R10.9 - Unspecified abdominal pain Category: Medical (3) Snoring: Code(s): R06.83 - Snoring Category: Medical (4) Iron deficiency anemia: Code(s): D50.9 - Iron deficiency anemia, unspecified Category: Medical Qualifiers: Iron deficiency anemia type: unspecified iron deficiency Qualified Code(s): D50.9 - Iron deficiency anemia, unspecified (5) Edema of left lower extremity: Code(s): R60.0 - Localized edema Category: Medical (6) Prediabetes: Code(s): R73.03 - Prediabetes Category: Medical (7) Hyperlipidemia: Code(s): E78.5 - Hyperlipidemia, unspecified Category: Medical Qualifiers: Hyperlipidemia type: moderate mixed hyperlipidemia not requiring statin therapy Qualified Code(s): E78.2 - Mixed hyperlipidemia Plan . Orders: Orders Complete Blood Count no Diff Today D50.9 - Iron deficiency anemia, unspecified, R74.01 - Elevation of levels of liver transaminase levels IRON PROFILE Today D50.9 - Iron deficiency anemia, unspecified, R74.01 - Elevation of levels of liver transaminase levels Ferritin Today D50.9 - Iron deficiency anemia, unspecified, R74.01 - Elevation of levels of liver transaminase levels Comprehensive Met. Panel Today D50.9 - Iron deficiency anemia, unspecified, R74.01 - Elevation of levels of liver transaminase levels Hepatitis A,B,C Profile Today D50.9 - Iron deficiency anemia, unspecified, R74.01 - Elevation of levels of liver transaminase levels US abdomen comp w elastography Today R10.9 - Unspecified abdominal pain, R74.01 - Elevation of levels of liver transaminase levels RT home sleep study Today R06.83 - Snoring Medications: New metformin ER 500 mg PO DAILY 90 tabs 0RF multivitamin with iron 1 tab PO DAILY 90 tabs 2RF
[2024-12-04 12:56] VITALS: BP 134/76; PULSE 78; RESP 13; TEMP 36.2; O2SAT 97; BMI 45.1
--- OUTSIDE RECORDS SUMMARY | 2024-12-04 14:33 | XMS_ITS | Clinical Summary ---
Author Organization [facility] Address [address] [place] [address] Care Team Providers Care Human Machine Interface Engineer Name Role Phone Cristy Georges MD Primary Care Provider Unav ailable Surgical History Surgery Date Site/Laterality Comments APPENDECTOMY PROCEDURE: HISTORICAL APPENDECTOMY OTHER SURGICAL HISTORY surgery on kidney - PROCEDURE: [place] NEPHROLITHOTOMY COMP CGEN KDN ABNORMALITY ESOPHAGOGASTRODUODENOSCOPY 12/11/2005 PROCEDURE: DE ESOPHAGOGASTRODUODENOSCOPY TRANSORAL DIAGNOSTIC; COMMENT: Dr Stone: 3 [...] Td Vaccines (2 - Td or Tdap) 12/12/2020 12/12/2010 COVID-19 Vaccine (1 - 2023-2 5 season) 2024 Influenza Vaccine (#1) 2024 [...] age to complete this topic Care Teams Human Machine Interface Engineer Relationship Specialty Start Date End Date Cristy Georges MD PCP - General Internal Medicine 09/11/13
== END 2024-12-04 13:27 | disposition home or self-care (01) ==
PROVIDERS: PCP Nurse Practitioner Family; Visit Provider Nurse Practitioner Family
DX: R74.01 Elevation of levels of liver transaminase levels (principal); R10.9 Unspecified abdominal pain; R06.83 Snoring; D50.9 Iron deficiency anemia, unspecified; R60.0 Localized edema; R73.03 Prediabetes; E78.2 Mixed hyperlipidemia

== ENCOUNTER → 2024-12-04 12:51 | Outpatient (BNVA) | payer BC, SELFPAY | PROVIDERS: PCP Nurse Practitioner Family; Visit Provider Nurse Practitioner Family ==

== ENCOUNTER 2024-12-15 12:50 | Outpatient (REF) | payer BC, SELFPAY ==
--- NOTE | ~2024-12-15 | US_ITS ---
EXAMINATION: US LOWER EXTREMITY VENOUS (REFLUX EXAM), BILATERAL CLINICAL INFORMATION: Varices. Lower extremity swelling. COMPARISON: DVT ultrasound left lower extremity dated December 15, 2024. TECHNIQUE: Color flow triplex imaging and compression Doppler was performed to evaluate both the deep and the superficial systems bilaterally. To evaluate the superficial system, the examination was performed in the upright position. Color-flow Doppler ultrasound and compression ultrasound were utilized. In addition, maneuvers were utilized to demonstrate reflux. FINDINGS: 1. DEEP VENOUS ULTRASOUND OF THE RIGHT LOWER EXTREMITY: Common Femoral Vein: Compressible, normal respiratory variation and augmented flow. Femoral Vein: Compressible, normal color flow and augmentation. Popliteal Vein: Compressible, normal augmentation. Deep Reflux: There is no evidence of reflux in the deep system in either the common femoral vein, superficial femoral or the popliteal vein. There is a 1.7 x 2.1 x 1.4 cm lobulated anechoic lesion in the popliteal region without flow on color Doppler interrogation. 2. SUPERFICIAL ULTRASOUND WITH DOPPLER OF RIGHT LOWER EXTREMITY: GREAT SAPHENOUS VEIN: Saphenofemoral Junction: 0.7 cm; Reflux: 0 ms Proximal Thigh: 0.3 cm; Reflux: 0 ms Mid Thigh: 0.3 cm; Reflux: 0 ms Distal Thigh: 0.3 cm; Reflux: 0 ms At Knee: 0.2 cm; Reflux: 0 ms Proximal Calf: 0.2 cm; Reflux: 0 ms Mid Calf: 0.2 cm; Reflux: 0 ms Distal Calf: 0.3 cm; Reflux: 0 ms DUPLICATED MEDIAL GREAT SAPHENOUS VEIN: Diameter: None imaged Reflux: NA DUPLICATED LATERAL GREAT SAPHENOUS VEIN: Diameter: None imaged Reflux: NA SMALL SAPHENOUS VEIN: Saphenopopliteal Junction: 0.3 cm; Reflux: 0 ms Proximal: 0.2 cm; Reflux: 0 ms Distal: 0.2 cm; Reflux: 0 ms VEIN OF GIACOMINI: Size: NA Reflux: NA PERFORATORS: Location: Small saphenous vein mid segment and midcalf. Size: 0.2 cm. Reflux: NA VARICOSITIES: Location: Proximal thigh. Size: 0.3 cm. Reflux: NA 3. DEEP VENOUS ULTRASOUND OF THE LEFT LOWER EXTREMITY: Common Femoral Vein: Compressible, normal respiratory variation and augmented flow. Femoral Vein: Compressible, normal color flow and augmentation. Popliteal Vein: Compressible, normal augmentation. Deep Reflux: There is no evidence of reflux in the deep system in either the common femoral vein, superficial femoral or the popliteal vein. No popliteal cyst 4. SUPERFICIAL ULTRASOUND WITH DOPPLER OF LEFT LOWER EXTREMITY: GREAT SAPHENOUS VEIN: Saphenofemoral Junction: 0.7 cm; Reflux: 0 ms Proximal Thigh: 0.3 cm; Reflux: 0 ms Mid Thigh: 0.2 cm; Reflux: 0 ms Distal Thigh: 0.2 cm; Reflux: 0 ms At Knee: 0.2 cm; Reflux: 0 ms Proximal Calf: 0.2 cm; Reflux: 0 ms Mid Calf: 0.2 cm; Reflux: 0 ms Distal Calf: 0.1 cm; Reflux: 0 ms DUPLICATED MEDIAL GREAT SAPHENOUS VEIN: Diameter: None imaged Reflux: NA DUPLICATED LATERAL GREAT SAPHENOUS VEIN: Diameter: None imaged. Reflux: NA SMALL SAPHENOUS VEIN: Saphenopopliteal Junction: 0.3 cm; Reflux: 0 ms Proximal: 0.2 cm; Reflux: 0 ms Distal: 0.2 cm; Reflux: 0 ms VEIN OF GIACOMINI: Size: NA Reflux: NA PERFORATORS: Location: Small saphenous vein, mid segment and midcalf. Size: 0.2-0.3 cm. Reflux: NA VARICOSITIES: Location: Proximal thigh Size: 0.3 cm. Reflux: NA US/US venous insuf bilat IMPRESSION: Right: No venous insufficiency. Varices in the proximal thigh without reflux. 2.1 cm popliteal cyst. Left: No venous insufficiency. Perforators in the mid small saphenous vein mid segment without reflux. Electronically signed by: Claudio Rodriguez MD 12/18/2024 03:32 PM EDT
--- OUTSIDE RECORDS SUMMARY | 2024-12-15 14:25 | XMS_ITS | Clinical Summary ---
Author Organization [facility] Address [address] [place] [address] Care Team Providers Care Boiler Cleaner Name Role Phone Cristy Geroges MD Primary Care Provider Unav ailable Surgical History Surgery Date Site/Laterality Comments APPENDECTOMY PROCEDURE: HISTORICAL APPENDECTOMY OTHER SURGICAL HISTORY surgery on kidney -infant PROCEDURE: [place] NEPHROLITHOTOMY COMP CGEN KDN ABNORMALITY ESOPHAGOGASTRODUODENOSCOPY 12/11/2005 PROCEDURE: [place] ESOPHAGOGASTRODUODENOSCOPY TRANSORAL DIAGNOSTIC; COMMENT: Dr Stone: 3 [...] age to complete this topic Care Teams Boiler Cleaner Relationship Specialty Start Date End Date Cristy Georges MD PCP - General Internal Medicine 09/11/13
== END 2024-12-15 12:51 | disposition home or self-care (01) ==
LOC: HO.US 12:50
PROVIDERS: PCP Nurse Practitioner Family; Visit Provider Nurse Practitioner Family
DX: R60.0 Localized edema (principal); E66.01 Morbid (severe) obesity due to excess calories; Z68.41 Body mass index [BMI] 40.0-44.9, adult
CPT/HCPCS: 93970

== ENCOUNTER → 2024-12-15 12:53 | Outpatient (BNV) | payer BC, SELFPAY | PROVIDERS: PCP Nurse Practitioner Family; Visit Provider Radiology Diagnostic Radiology | DX: M71.21 Synovial cyst of popliteal space [Baker], right knee (principal) | CPT/HCPCS: 93970 ==

== ENCOUNTER 2025-01-05 09:22 | Outpatient (REF) | payer BC, SELFPAY ==
--- NOTE | ~2025-01-05 | US_ITS ---
EXAMINATION: US ABDOMEN COMPLETE WITH LIVER ELASTOGRAPHY HISTORY: R74.01 - Elevation of levels of liver transaminase levels TECHNIQUE: Real-time grayscale ultrasound imaging of the abdomen was performed and images were reviewed. COMPARISON: There are no prior studies for comparison. FINDINGS: Liver: The right lobe of the liver measures 19.9 cm in size. The left lobe of the liver measures 11.5 cm in size. The liver demonstrates increased echotexture, consistent with steatosis. No focal mass or intrahepatic biliary ductal dilatation is identified. There is normal hepatopedal flow in the portal vein. Ultrasound elastography of the liver was performed with 10 separate measurements of the liver parenchyma with the patient in the supine position. Measurements were obtained approximately 2 cm below Lukasz's capsule and perpendicular to the capsule. Images are of satisfactory quality. The median shear wave velocity is 1.04 m/s. The interquartile range/median (IQR/median) is 0.17. Gallbladder and biliary tree: The gallbladder is unremarkable, without evidence of calculi, wall thickening, or pericholecystic fluid. There is no sonographic Lugo sign. The common bile duct is normal in caliber measuring 3 mm. Kidneys: The right kidney measures 12.3 cm in length. The left kidney measures 11.6 cm in length. The kidneys are unremarkable, without evidence of masses, hydronephrosis, or calculi. Pancreas: The pancreatic head, neck, and body are unremarkable. The pancreatic tail is obscured by bowel gas. Spleen: The spleen is top normal in size, measuring 12.8 cm in length. Abdominal aorta and inferior vena cava: The visualized portions of the abdominal aorta and inferior vena cava are normal in caliber. There is no free fluid in the abdomen. US/US abdomen comp w elastography IMPRESSION: Hepatomegaly and hepatic steatosis. Borderline splenomegaly. The median shear wave velocity in the liver is 1.04 m/s, corresponding to a median liver stiffness of 3.28 kPa. The IQR/median value is 0.17. This is indicative of a poor quality data set, and the estimated liver stiffness may be unreliable. Findings are indicative of a normal elastography value with a low likelihood of severe fibrosis or cirrhosis. REFERENCE: Society of Radiologists in Ultrasound Liver Stiffness Thresholds (2020): LIVER STIFFNESS THRESHOLDS: *Shear wave velocity less than 1.3 m/s (Liver Stiffness equal or less than 5 kPa): High probability of being normal. *Shear wave velocity less than 1.7 m/s (Liver Stiffness less than 9 kPa): In the absence of other known clinical signs, rules out compensated advanced chronic liver disease. *Shear wave velocity between 1.7-2.1 m/s (Liver Stiffness 9-13 kPa): Suggestive of compensated advanced chronic liver disease but need further test for confirmation. *Shear wave velocity between 2.1-2.4 m/s (Liver Stiffness 13-17 kPa): Rules in compensated advanced chronic liver disease. *Shear wave velocity greater than 2.4 m/s (Liver Stiffness over 17 kPa): Suggestive of clinically significant portal hypertension. QUALITY OF DATA SET: *IQR/Median value equal or less than 0.15 implies a quality data set. *IQR/Median value over 0.15 implies a poor quality data set. SIGNIFICANT CHANGE FROM PRIOR EXAM: Significant change if liver stiffness measurement is 10% or greater from prior exam. OTHER CONSIDERATIONS: The stage of liver fibrosis may be overestimated in the setting of acute hepatitis, liver inflammation, elevated liver function tests, hepatic vascular congestion, obstructive cholestasis, non-fasting state, and infiltrative diseases such as amyloidosis and lymphoma. In some patients with NAFLD, the liver stiffness thresholds for compensated advanced chronic liver disease may be lower. In causes other than viral hepatitis and NAFLD, liver stiffness thresholds are not well established. Electronically signed by: Ariel Mcallister MD 01/05/2025 10:14 AM EDT
== END 2025-01-05 09:23 | disposition home or self-care (01) ==
LOC: HO.US 09:22
PROVIDERS: PCP Nurse Practitioner Family; Visit Provider Nurse Practitioner Family
DX: R10.9 Unspecified abdominal pain (principal); R74.01 Elevation of levels of liver transaminase levels
CPT/HCPCS: 76700; 76981

== ENCOUNTER → 2025-01-05 09:24 | Outpatient (BNV) | payer BC, SELFPAY | PROVIDERS: PCP Nurse Practitioner Family; Visit Provider Radiology Diagnostic Radiology | DX: R74.01 Elevation of levels of liver transaminase levels (principal) | CPT/HCPCS: 76700; 76981 ==

== ENCOUNTER 2025-02-05 08:22 | Outpatient (AMB) | payer BC, SELFPAY ==
--- NOTE | 2025-02-05 08:26 | A.OFFPC_ITS ---
Vital Signs 02/05/25 08:29 Height 5 ft 10 in Weight 295 lb 8 oz BMI 42.4 BP 122/70 Blood Pressure Location Rt brachial Position Sitting Respiration 12 Pulse 76 Pulse Source Pulse Oximeter Temp 97.2 F Temp Source Oral Pulse Oximetry (%) 98 Oxygen Delivery Method Room Air Intake Visit Reasons: 30 min fu ^LFT, Prediabetes, Anemia and testing Intake Note: Follow up on labs Heat Treat Technician Required: No Allergies No Known Allergies Allergy (Verified 02/05/25 09:02) Medication List - Last Reconciled 02/05/25 by Vannesa Davis, MANAGER FIELD- metformin ER 500 mg PO DAILY multivitamin with iron 1 tab PO DAILY omeprazole 40 mg PO DAILY Tobacco use date assessed: 02/05/25 Dental Screening Dental Screen Date: 02/05/25 Did you have a dental visit in the last 12 months?: Yes Did you have a dental problem in the last 6 months where you did not have access to dental care?: No Was dental information given to patient?: Patient has dentist HPI HPI Comments History of Present Illness Details 44 y/o M with GERD, barretts esoph, Fatt y liver, hld , obese, prediabetes, anemia, diverticulitis SurgHx:: Appy age 14, Kidney surgery at [facility]: Dad: Lung Ca Schizophrenia. Mom Breast Ca SocHx: Nonsmoker, EtOH Occasional. No Drugs. 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 Imaging studies revealed no venous insufficiency of bilateral lower extremities. However, there were varices noted in the right proximal thigh without reflux and a 2.1 cm popliteal cyst on the right. Additionally, perforators were present in the left mid small saphenous vein. Edema is mostly affecting LLE. - The patient expresses concern about ae sthetic changes due to the varicose veins and has a hesitant history with compression stockings despite minimal temporary relief, citing discomfort during their use. - With the prospect of improved circulat ion and a related aesthetic improvement being discussed, a vascular referral has been facilitated. - The recent ultrasound of the liver joao wed hepatomegaly and hepatic steatosis with a borderline enlarged spleen, which mirrors the elevated liver function tests. GI appt in progress. - Weight loss has been experienced since last visit; increasing steps,drinking shakes, started metformin without gastrointestinal disturbances, aiming for an improvement in liver function and possible steatosis reduction. - Sleep study scheduled for March - Taking MVI with Iron for anemia - Taking PPI for GERD Exam Awake alert NAD PERRLA, EOMI, scleras noniteric bilat RRR LS CTAB abd soft, nontender, normoactive bs x 4, + hepatomegaly trace to +1 edema LLE,decreased PP, skin intact, RLE no edema normal PP Skin to LLE is firm below the knee, no erythema Mildly anxious, pleasant and cooperative Results - Labs: Mild anemia, hyperlipidemia, ajit vated liver enzymes, and A1c of 5.8%. - Imaging: Previous lower extremity ultr asound normal, negative for DVT. - D-dimer test: Negative. - Imaging: Ultrasound indicates hepatome tayler, hepatic steatosis, and borderline splenomegaly. Venous ultrasound of lower extremities showed no insufficiency, noted varices, and right-sided popliteal cyst. Discussion Notes During today's consultation, I thoroughly reviewed the patient's bilateral lower extremity swelling and imaging results from the recent tests. The patient was informed of the presence of varicose veins and a right-sided popliteal cyst, clarifying these findings' impacts. Vascular consultation was deemed advisable to potentially enhance circulation and alleviate the swelling's aesthetic effect. Acknowledging the reluctance to use compression socks, I suggested discussing alternative management options with the vascular specialist. We considered the liver ultrasound findings of hepatomegaly and hepatic steatosis, outlining the importance of weight reduction, monitoring liver enzyme levels, and continued metformin use to assist weight and blood sugar management. The patient accepted the discussions and was agreeable to proceeding with a vascular consult and scheduled sleep study for further workup. Instruction was given to attend the follow-up visit and labs one week before the end of March to correlate with sleep study outcomes. Assessment and Plan 1. Bilateral Lower Extremity Swelling We recommend consultation with the vascular team at [facility] to explore circulation improvement options, given the noted varicose veins and incidental popliteal cyst. Monitoring the swelling and further evaluation via sleep study is included in the follow-up plan. 2. Liver Health and Steatosis Given the ultrasonographic findings of liver enlargement and steatosis, we emphasize weight loss management. Continued metformin use is advocated for hepatic and metabolic regulation, with follow-up labs to monitor LFTs. GI appt in progress. 3. Obesity Management The patient is advised on lifestyle modifications augmented by metformin, encouraging stepped-up activity levels and dietary adjustments to further progress weight reduction. 4. Prediabetes Continuing metformin therapy is outlined as a measure for glucose level stabilization, with interval monitoring proposed to adjust treatment if necessary. Patient Instructions - Follow up with a vascular specialist [facility] as referred to evaluate veins and swelling. - Continue taking metformin as prescribe d to manage liver health and predi abetes. Cont MVI and PPI - Schedule and complete a sleep study as arranged for March. - Return for repeat lab tests in March be fore the follow-up appointment. - Maintain current lifestyle modificatio ns including diet and physical activity as discussed. Consent Patient was informed and verbally consented to the use of an ambient scribe for clinic note documentation during this visit. Total time spent caring for the patient today was 31 minutes. This includes time spent before the visit reviewing the chart, time spent during the visit, and time spent after the visit on documentation, reviewing laboratory results, diagnostic imaging, medications, performing a medically necessary evaluation, counseling on diagnoses, care coordination, ordering appropriate tests, ordering appropriate medications, review of tests performed by other providers, reporting test results with the patient, communication with other healthcare providers. [facility] Medical History (Updated 02/05/25 @ 09:22 by Vannesa Davis, [facility]) Celiac disease Family history of colon cancer in father GERD (gastroesophageal reflux disease) History of Solano's esophagus Morbid obesity Surgical History History of colonoscopy (~2020) History of esophagogastroduodenoscopy (EGD) (~2020) History of appendectomy (~1993) Family History Mother No problems noted. 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 Current occupational exposures/hazards: No Cognitive needs: No Hearing needs: No Vision needs: No Questionnaire Thrive Questionnaire Date Thrive assessed: 11/18/24 I am a: Patient What is your living situation today?: I have a steady place to live Within the past 12 months, did the food you bought not last and you didn't have the money to get more?: Never true Within the past 12 months, did you worry whether your food would run out before you got money to buy more?: Never true Do you have trouble paying for medicines?: No Do you have trouble getting transportation to medical appointments?: No Do you have trouble paying your heating and electricity bill?: No Do you have trouble taking care of your child, family member or friend?: No Do you have trouble with day-to-day activities such as bathing, preparing meals, shopping, managing finances, etc.?: No Are you currently unemployed and looking for a job?: No Are you interested in more education?: No Please select the resources that you would like help with: None Currently or been in a relationship where the following occur: No concerns reported THRIVE Score: 0 HASMUKH-7 AMB Questionnaire HASMUKH-7 Date HASMUKH - 7 assessed: 12/04/24 Source: Developed by Drs. Ariel Whittington, Lanette Macario, Blaine Mauricio and colleagues, with an educational tawanda from [employer]. Physical exam (Primary Care) Vital Signs: Last Vital Signs Temp 97.2 F 02/05/25 08:29 Pulse 76 02/05/25 08:29 Resp 12 02/05/25 08:29 BP 122/70 02/05/25 08:29 Pulse Ox 98 02/05/25 08:29 Oxygen Delivery Method Room Air 02/05/25 08:29 BMI result Body Mass Index 42.4 Tobacco/Smoking Status: Tobacco use Status Tobacco use date assessed 02/05/25 02/05/25 08:30 Patient Tobacco Use Status Never used Tobacco 02/05/25 08:26 e-Cigarette/Vaping Use Never Used 02/05/25 08:26 Thrive Assessment: Date of Thrive Assessment Date Thrive assessed 11/18/24 02/05/25 08:26 Currently or been in a relationship where the following occur: No concerns reported Results Reviewed Results Reviewed: EXAMINATION: US LOWER EXTREMITY VENOUS (REFLUX EXAM), BILATERAL CLINICAL INFORMATION: Varices. Lower extremity swelling. COMPARISON: DVT ultrasound left lower extremity dated December 15, 2024. TECHNIQUE: Color flow triplex imaging and compression Doppler was performed to evaluate both the deep and the superficial systems bilaterally. To evaluate the superficial system, the examination was performed in the upright position. Color-flow Doppler ultrasound and compression ultrasound were utilized. In addition, maneuvers were utilized to demonstrate reflux. FINDINGS: 1. DEEP VENOUS ULTRASOUND OF THE RIGHT LOWER EXTREMITY: Common Femoral Vein: Compressible, normal respiratory variation and augmented flow. Femoral Vein: Compressible, normal color flow and augmentation. Popliteal Vein: Compressible, normal augmentation. Deep Reflux: There is no evidence of reflux in the deep system in either the common femoral vein, superficial femoral or the popliteal vein. There is a 1.7 x 2.1 x 1.4 cm lobulated anechoic lesion in the popliteal region without flow on color Doppler interrogation. 2. SUPERFICIAL ULTRASOUND WITH DOPPLER OF RIGHT LOWER EXTREMITY: GREAT SAPHENOUS VEIN: Saphenofemoral Junction: 0.7 cm; Reflux: 0 ms Proximal Thigh: 0.3 cm; Reflux: 0 ms Mid Thigh: 0.3 cm; Reflux: 0 ms Distal Thigh: 0.3 cm; Reflux: 0 ms At Knee: 0.2 cm; Reflux: 0 ms Proximal Calf: 0.2 cm; Reflux: 0 ms Mid Calf: 0.2 cm; Reflux: 0 ms Distal Calf: 0.3 cm; Reflux: 0 ms DUPLICATED MEDIAL GREAT SAPHENOUS VEIN: Diameter: None imaged Reflux: NA DUPLICATED LATERAL GREAT SAPHENOUS VEIN: Diameter: None imaged Reflux: NA SMALL SAPHENOUS VEIN: Saphenopopliteal Junction: 0.3 cm; Reflux: 0 ms Proximal: 0.2 cm; Reflux: 0 ms Distal: 0.2 cm; Reflux: 0 ms VEIN OF GIACOMINI: Size: NA Reflux: NA PERFORATORS: Location: Small saphenous vein mid segment and midcalf. Size: 0.2 cm. Reflux: NA VARICOSITIES: Location: Proximal thigh. Size: 0.3 cm. Reflux: NA 3. DEEP VENOUS ULTRASOUND OF THE LEFT LOWER EXTREMITY: Common Femoral Vein: Compressible, normal respiratory variation and augmented flow. Femoral Vein: Compressible, normal color flow and augmentation. Popliteal Vein: Compressible, normal augmentation. Deep Reflux: There is no evidence of reflux in the deep system in either the common femoral vein, superficial femoral or the popliteal vein. No popliteal cyst 4. SUPERFICIAL ULTRASOUND WITH DOPPLER OF LEFT LOWER EXTREMITY: GREAT SAPHENOUS VEIN: Saphenofemoral Junction: 0.7 cm; Reflux: 0 ms Proximal Thigh: 0.3 cm; Reflux: 0 ms Mid Thigh: 0.2 cm; Reflux: 0 ms Distal Thigh: 0.2 cm; Reflux: 0 ms At Knee: 0.2 cm; Reflux: 0 ms Proximal Calf: 0.2 cm; Reflux: 0 ms Mid Calf: 0.2 cm; Reflux: 0 ms Distal Calf: 0.1 cm; Reflux: 0 ms DUPLICATED MEDIAL GREAT SAPHENOUS VEIN: Diameter: None imaged Reflux: NA DUPLICATED LATERAL GREAT SAPHENOUS VEIN: Diameter: None imaged. Reflux: NA SMALL SAPHENOUS VEIN: Saphenopopliteal Junction: 0.3 cm; Reflux: 0 ms Proximal: 0.2 cm; Reflux: 0 ms Distal: 0.2 cm; Reflux: 0 ms VEIN OF GIACOMINI: Size: NA Reflux: NA PERFORATORS: Location: Small saphenous vein, mid segment and midcalf. Size: 0.2-0.3 cm. Reflux: NA VARICOSITIES: Location: Proximal thigh Size: 0.3 cm. Reflux: NA US/US venous insuf bilat IMPRESSION: Right: No venous insufficiency. Varices in the proximal thigh without reflux. 2.1 cm popliteal cyst. Left: No venous insufficiency. Perforators in the mid small saphenous vein mid segment without reflux. Coding Level of Care Code Est Pt Level 4 (44738) Complex EM visit Add On G2211 Diagnoses Edema of left lower extremity R60.0 Moderate mixed hyperlipidemia not requiring statin therapy E78.2 Hyperlipidemia type: moderate mixed hyperlipidemia not requiring statin therapy Synovial cyst of popliteal space [Parks], right knee M71.21 Elevated transaminase level R74.01 Gastroesophageal reflux disease with esophagitis without hemorrhage K21.00 Esophagitis presence: with esophagitis Esophagitis bleeding: without hemorrhage Iron deficiency anemia, unspecified iron deficiency anemia type D50.9 Iron deficiency anemia type: unspecified iron deficiency Morbid obesity E66.01 Nonalcoholic hepatosteatosis K76.0 Prediabetes R73.03 Assessment & Plan Assessment & Plan (1) Edema of left lower extremity: Code(s): R60.0 - Localized edema Category: Medical (2) Hyperlipidemia: Code(s): E78.5 - Hyperlipidemia, unspecified Category: Medical Qualifiers: Hyperlipidemia type: moderate mixed hyperlipidemia not requiring statin therapy Qualified Code(s): E78.2 - Mixed hyperlipidemia (3) Synovial cyst of popliteal space [Parks], right knee: Code(s): M71.21 - Synovial cyst of popliteal space [Parks], right knee Category: Medical (4) Elevated transaminase level: Code(s): R74.01 - Elevation of levels of liver transaminase levels Category: Medical (5) GERD (gastroesophageal reflux disease): Code(s): K21.9 - Gastro-esophageal reflux disease without esophagitis Category: Medical Qualifiers: Esophagitis presence: with esophagitis Esophagitis bleeding: without hemorrhage Qualified Code(s): K21.00 - Gastro-esophageal reflux disease with esophagitis, without bleeding (6) Iron deficiency anemia: Code(s): D50.9 - Iron deficiency anemia, unspecified Category: Medical Qualifiers: Iron deficiency anemia type: unspecified iron deficiency Qualified Code(s): D50.9 - Iron deficiency anemia, unspecified (7) Morbid obesity: Code(s): E66.01 - Morbid (severe) obesity due to excess calories Category: Medical (8) Nonalcoholic hepatosteatosis: Comment: US 12/2024 Hepatomegaly and hepatic steatosis. Borderline splenomegaly. Code(s): K76.0 - Fatty (change of) liver, not elsewhere classified Category: Medical (9) Prediabetes: Code(s): R73.03 - Prediabetes Category: Medical Plan . Orders: Orders Lipid Panel Today E78.2 - Mixed hyperlipidemia Referrals Vascular Surgery Referral R60.0 - Localized edema Medications: New omeprazole 40 mg PO DAILY 90 caps 2RF Refilled metformin ER 500 mg PO DAILY 90 tabs 0RF
[2025-02-05 08:29] VITALS: BP 122/70; PULSE 76; RESP 12; TEMP 36.2; O2SAT 98; BMI 42.4
--- OUTSIDE RECORDS SUMMARY | 2025-02-05 08:43 | XMS_ITS | Clinical Summary ---
Author Organization [facility] Address [address] [place] [address] Care Team Providers Care Chief Investment Officer Name Role Phone Cristy Georges MD Primary Care Provider Unav ailable Surgical History Surgery Date Site/Laterality Comments APPENDECTOMY PROCEDURE: HISTORICAL APPENDECTOMY OTHER SURGICAL HISTORY surgery on kidney - PROCEDURE: [place] NEPHROLITHOTOMY COMP CGEN KDN ABNORMALITY ESOPHAGOGASTRODUODENOSCOPY 12/11/2005 PROCEDURE: [place] ESOPHAGOGASTRODUODENOSCOPY TRANSORAL DIAGNOSTIC; COMMENT: Dr Stone: 3 [...] - 2023-2 5 season) 2024 Influenza Vaccine (Season Ended) 2025 HIB Vaccines Aged Out No longer eligi [...] age to complete this topic Meningococcal B Vaccine Aged Out No l onger eligible based on patient's age to complete [...] age to complete this topic Care Teams Chief Investment Officer Relationship Specialty Start Date End Date Cristy Georges MD PCP - General Internal Medicine 09/11/13
== END 2025-02-05 09:13 | disposition home or self-care (01) ==
LOC: HO.HMCFM 08:23
PROVIDERS: PCP Nurse Practitioner Family; Visit Provider Nurse Practitioner Family
DX: R60.0 Localized edema (principal); E78.2 Mixed hyperlipidemia; E66.01 Morbid (severe) obesity due to excess calories; Z68.41 Body mass index [BMI] 40.0-44.9, adult; M71.21 Synovial cyst of popliteal space [Baker], right knee; R74.01 Elevation of levels of liver transaminase levels; K21.00 Gastro-esophageal reflux disease with esophagitis, without bleeding; D50.9 Iron deficiency anemia, unspecified; K76.0 Fatty (change of) liver, not elsewhere classified; R73.03 Prediabetes

== ENCOUNTER → 2025-02-05 08:22 | Outpatient (BNVA) | payer BC, SELFPAY | PROVIDERS: PCP Nurse Practitioner Family; Visit Provider Nurse Practitioner Family | DX: Z13.89 Encounter for screening for other disorder (principal) ==

== ENCOUNTER 2025-02-13 11:15 | Outpatient (AMB) | payer BC, SELFPAY ==
[2025-02-13 11:19] VITALS: BP 132/78; BMI 42.3
--- NOTE | 2025-02-13 11:19 | A.OFFVIS_ITS ---
Vital Signs 02/13/25 11:19 Height 5 ft 10 in Weight 295 lb BMI 42.3 BP 132/78 Blood Pressure Location Lt brachial Position Sitting Intake Visit Reasons: OXYACETYLENE WELDER/[facility] referral for edema s/p US 12/15/24 Intake Note: Pt presents to the office today for a new patient visit [facility] referral for edema s/p US 12/15/24. Pt states his swelling is in his ankle and lower left leg. Pt denies any other symptoms. Allergies No Known Allergies Allergy (Verified 02/13/25 11:20) HPI HPI OXYACETYLENE WELDER/[facility] referral for edema s/p US 12/15/24: Details: Kunal, a very pleasant 44 yo male patient, is presenting today on a referral from his PCP for ongoing left lower extremity swelling. He states that he noticed it appx 6m ago after taking his knee high socks off and the socks were leaving a significant dent in his left leg, below his knee. He reached out to his PCP, whom did a full labwork workup and US. He states he had gained appx 40# in the last year but has since lost 21#, and there has been no change to the swelling. He denies any pain or cramping in the left lower leg. He states, that after sitting for a period of time, he can get some heavy feeling in his leg, which goes away after walking. He states he recently started a 3rd shift job and his job entails being half sitting/half walking around. He states he has been using compression socks, but then states the swelling comes right back when he takes them off.. He states he elevates his legs in the morning after work, which helps a little. He denies any injuries/wounds to the leg. He has no concerns/swelling of the right lower extremity. There is no hx of blood clots or clotting disorders in his family. He is a non smoker and is a prediabetic on Metformin. [facility] Medical History Celiac disease Morbid obesity Family history of colon cancer in father History of Solano's esophagus GERD (gastroesophageal reflux disease) Surgical History History of colonoscopy (~2020) History of esophagogastroduodenoscopy (EGD) (~2020) History of appendectomy (~1993) Family History Mother No problems noted. 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 Current occupational exposures/hazards: No Cognitive needs: No Hearing needs: No Vision needs: No Review of Systems Const Reports as per HPI and Denies weakness ENT Reports Normal hearing present and Denies dizziness Card Reports as per HPI, Denies chest pain, Denies chest pain at rest, Denies chest pain with activity, Denies dyspnea and Denies dyspnea on exertion Resp Reports as per HPI, Denies cough, Denies dyspnea and Denies dyspnea on exertion GI Reports as per HPI, Denies abdominal pain, Denies nausea and Denies vomiting Musc Denies numbness Skin/Breast Reports as per HPI, Denies erythema and Denies wounds Neuro Reports Normal hearing present, Denies dizziness, Denies numbness, Denies Sensory deficit (Neuro) and Denies weakness Psych Reports no additional complaints Endo Reports no additional complaints Physical Exam Vital Signs: Last Vital Signs BP 132/78 02/13/25 11:19 BMI result Body Mass Index 42.3 Const General: healthy appearing and no acute distress Orientation/consciousness: patient oriented x3 HEENT Head: Yes normal to inspection Ears: hearing grossly normal bilaterally Mouth: Normal oral and palatal mucosa present Resp Effort & Inspection: normal respiratory effort and able to speak in complete sentences Auscultation: clear to auscultation bilaterally Cardio Jugular venous distension: no JVD Rate: regular rate Rhythm: regular rhythm Heart sounds: S1 normal heart sound present and S2 normal heart sound present Bruits: no abdominal aortic bruits, no carotid bruits, no femoral bruits and no renal bruits Peripheral pulses: Peripheral pulses 2+ throughout GI Inspection: Yes normal to inspection Palpation (GI): No Abdominal aortic bruit present Skin General skin exam: no rashes or lesions noted Wounds: no wounds Hair: normal Neuro General: patient oriented x3 Cranial nerves: Yes Normal hearing present Cognition (Neuro): normal cognition Gait exam (Neuro): Normal gait present Motor exam (neuro): 02/12 motor strength present throughout Sensory Exam: No Sensory deficit (Neuro) Extrem Other: Left lower extremity: +2 pitting edema noted. No varicosities or tortuoisities noted. No discoloration noted. No wounds noted. Palpable DP pulse. Foot/leg warm to the touch. Right in cm: Thigh 57 Knee 46 Calf 44 Ankle 25 Left in cm: Thigh 57 Knee 48 Calf 45.5 Ankle 27 General: Yes normal to inspection, Yes full ROM, Yes capillary refill normal and Yes normal gait Results Reviewed Results Reviewed: Brief summary of venous insufficiency testing is as follows: right great saphenous vein: negative right small saphenous vein: negative right accessory vein: none present left great saphenous vein: negative left small saphenous vein: negative left accessory vein: none present Please note there is no evidence of any venous aneurysms or significant tortuosity Assessment & Plan Assessment & Plan (1) Lymphedema: Code(s): I89.0 - Lymphedema, not elsewhere classified Category: Medical Plan: Kunal is presenting today on a referral from his PCP for concerns of left lower extremity swelling for appx 6m. There was no precipitating events, no injuries or wounds. He has no swelling of his right lower extremity. US, performed on 12/15/24, was negative for DVT and venous insufficiency. He has been wearing compression socks, which he states helps with the swelling; however, once they are off, the swelling comes right back. He has lost some weight and is physically active. In short the patient has late onset lymphedema. The patient has been on conservative treatment for at least 3 months with minimal relief. Patient has tried 30 mm of mercury compression garments, elevation, exercise, healthy diet, and doing manual says self MLD to the best of their ability for over 4 weeks but with no significant relief. He has been compliant with the program; but,it has provided minimal relief. In addition, on physical exam, we are noticing significant swelling and hyperplasia. It appears that he has stage 2 lymphedema. Patient has completed multiple forms of conservative therapy; yet significant symptoms remain. Patient requires the use of a pneumatic compression device, which we will assist in trying to have the patient obtain them. A pneumatic compression device will help reduce swelling and other lymphedema comorbidities. We will have him present to our lymphedema clinic on April 25. Thank you for allowing us to assist in this patient's care. Coding Level of Care Code New Pt Level 4 (66574) Diagnoses Lymphedema I89.0
--- OUTSIDE RECORDS SUMMARY | 2025-02-13 13:04 | XMS_ITS | Clinical Summary ---
Author Organization [facility] Address [address] [place] [address] Care Team Providers Care Jack Tamp Operator Name Role Phone Cristy Georges MD Primary Care Provider Unav ailable Surgical History Surgery Date Site/Laterality Comments APPENDECTOMY PROCEDURE: HISTORICAL APPENDECTOMY OTHER SURGICAL HISTORY surgery on kidney - PROCEDURE: [place] NEPHROLITHOTOMY COMP CGEN KDN ABNORMALITY ESOPHAGOGASTRODUODENOSCOPY 12/11/2005 PROCEDURE: [place] ESOPHAGOGASTRODUODENOSCOPY TRANSORAL DIAGNOSTIC; COMMENT: Dr Stone: 3 [...] age to complete this topic Care Teams Jack Tamp Operator Relationship Specialty Start Date End Date Cristy Georges MD PCP - General Internal Medicine 09/11/13
== END 2025-02-13 11:54 | disposition home or self-care (01) ==
LOC: HO.HVS 11:16
PROVIDERS: PCP Nurse Practitioner Family; Visit Provider Physician Assistant Surgical
DX: I89.0 Lymphedema, not elsewhere classified (principal)
CPT/HCPCS: 99204

== ENCOUNTER → 2025-02-13 11:15 | Outpatient (BNVA) | payer BC, SELFPAY | PROVIDERS: PCP Nurse Practitioner Family; Visit Provider Physician Assistant Surgical ==

== ENCOUNTER 2025-05-17 11:35 | Outpatient (REF) | payer BC, SELFPAY ==
[2025-05-17 14:17] LABS: Hematocrit 46.2 % (42.0-52.0); Hemoglobin 15.2 g/dl (14.0-18.0); Mean Corpuscular HGB Conc 32.9 g/dl (31.0-36.0); Mean Corpuscular Hemoglobin 28.4 pg (27.0-33.0); Mean Corpuscular Volume 86.2 fL (80.0-98.0); NRBC Abs Auto 0.000 X10*3/uL (0.0-0.012); NRBC Pct Auto 0.0 /100WBC (0.0-0.2); Platelet Count 194 X10*3/uL (160-400); Red Blood Count 5.36 X10*6/uL (4.60-5.80); White Blood Count 8.5 X10*3/uL (4.8-10.8)
[2025-05-17 14:28] LABS: Appearance Urine Clear; Glucose Urine UA Negative (Negative); PH 5.5 (5.0-9.0); Specific Gravity - Urine 1.025 (1.005-1.025)
[2025-05-17 14:56] LABS: Alanine Aminotransferase 40 U/L (0-40); Albumin Level 4.6 g/dL (3.5-5.0); Alkaline Phosphatase 124 U/L (39-117); Anion Gap 14 (12-20); Aspartate Amino Transferase 38 U/L (5-37); Blood Urea Nitrogen 10 mg/dL (9-16); Calcium 9.2 mg/dL (8.4-10.2); Carbon Dioxide 27 mmol/L (22-29); Chloride 105 mmol/L (96-108); Cholesterol 206 mg/dL (<200); Estimated Glomerular Filt Rate > 60; HDL Cholesterol 47 mg/dL (>40); Iron 72 mcg/dL (45-160); Percent Iron Saturation 16 % (15-50); Potassium 3.5 mmol/L (3.3-5.1); Sodium 142 mmol/L (135-145); Total Iron Binding Capacity 440 mcg/dL (228-428); Total Protein 7.6 g/dL (6.5-8.0); Triglycerides 170 mg/dL (<150); Unsaturated Iron Binding 368 ug/dL
[2025-05-17 15:11] LABS: Ferritin 25 ng/mL (20-250)
[2025-05-17 15:49] LABS: CT PCR Urine NOT DETECTED (Not Detect.); NG PCR Urine NOT DETECTED (Not Detect.)
[2025-05-18 08:06] LABS: Syphilis Screen Nonreactive (Nonreactive)
[2025-05-18 08:18] LABS: HBS Num1 87.10 mIU/mL (0-7.99); HBc Num1 0.12 S/CO (0.00-0.79); HBsAGNum1 0.39 S/CO (0.00-0.99); HIV Num 1 0.05 S/CO (0.00-0.99); Hepatitis A Antibody IgM 0.19 Index (0-0.79); Hepatitis B Surface Antigen Negative (Negative); ~HepC Num1 0.36 S/CO (0.00-0.79); ~Hepatitis A Antibody IgM Nonreactive (Nonreactive); ~Hepatitis B Surface Antibody REACTIVE (Nonreactive); ~Hepatitis C Antibody Nonreactive (Nonreactive)
== END 2025-05-17 11:36 | disposition home or self-care (01) ==
LOC: HO.WFDLDS 11:35
PROVIDERS: PCP Nurse Practitioner Family; Visit Provider Nurse Practitioner Family
DX: Z09 Encounter for follow-up examination after completed treatment for conditions other than malignant neoplasm (principal); K44.9 Diaphragmatic hernia without obstruction or gangrene; K21.9 Gastro-esophageal reflux disease without esophagitis; D50.9 Iron deficiency anemia, unspecified; K57.90 Diverticulosis of intestine, part unspecified, without perforation or abscess without bleeding; N32.89 Other specified disorders of bladder; A63.0 Anogenital (venereal) warts; E78.2 Mixed hyperlipidemia; R73.03 Prediabetes; K76.0 Fatty (change of) liver, not elsewhere classified; Z11.3 Encounter for screening for infections with a predominantly sexual mode of transmission; R74.01 Elevation of levels of liver transaminase levels; R30.0 Dysuria
CPT/HCPCS: 80053; 80061; 81003; 82728; 83540; 85027; 86704; 86706; 86709; 86780; 86803; 87340; 87389; 87491; 87591

== ENCOUNTER 2025-05-17 11:35 | Outpatient (AMB) | payer BC, SELFPAY ==
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
[2025-05-17 11:43] VITALS: BP 142/80; PULSE 99; RESP 13; TEMP 36.3; O2SAT 98; BMI 41.9
--- OUTSIDE RECORDS SUMMARY | 2025-05-17 12:14 | XMS_ITS | Clinical Summary ---
Author Organization [facility] Address [address] [place] [address] Care Team Providers Care Acid Tank Cleaner Name Role Phone Cristy Georges MD Primary Care Provider Unav ailable Surgical History Surgery Date Site/Laterality Comments APPENDECTOMY PROCEDURE: HISTORICAL APPENDECTOMY OTHER SURGICAL HISTORY surgery on kidney - PROCEDURE: [place] NEPHROLITHOTOMY COMP CGEN KDN ABNORMALITY ESOPHAGOGASTRODUODENOSCOPY 12/11/2005 PROCEDURE: [place] ESOPHAGOGASTRODUODENOSCOPY TRANSORAL DIAGNOSTIC; COMMENT: Dr Stone: 3 [...] Vaccine (1 - 2023-2 5 season) 2024 Depression Screening 10/11/2024 Influenza Vaccine (#1) 2025 HIB Vaccines Aged Out No longer [...] 5 Years) and At-Risk Patients (6 to 49 Years) Aged Out No longer eligi ble based on patient's age to complete this topic RSV Immunization Patients Un andreina 20 months Aged Out No longer eligible b ased on patient's age to complete this topic Varicella Vaccines Aged Out No longer eligible based on patient's age to complete this topic Care Teams Acid Tank Cleaner Relationship Specialty Start Date End Date Cristy Georges MD PCP - General Internal Medicine 09/11/13
== END 2025-05-17 12:14 | disposition home or self-care (01) ==
LOC: HO.HMCFM 11:36
PROVIDERS: PCP Nurse Practitioner Family; Visit Provider Nurse Practitioner Family
DX: K44.9 Diaphragmatic hernia without obstruction or gangrene (principal); Z09 Encounter for follow-up examination after completed treatment for conditions other than malignant neoplasm; K21.9 Gastro-esophageal reflux disease without esophagitis; D50.9 Iron deficiency anemia, unspecified; K57.90 Diverticulosis of intestine, part unspecified, without perforation or abscess without bleeding; N32.89 Other specified disorders of bladder; A63.0 Anogenital (venereal) warts; E78.2 Mixed hyperlipidemia; R73.03 Prediabetes; K76.0 Fatty (change of) liver, not elsewhere classified

== ENCOUNTER 2025-06-28 08:28 | Outpatient (AMB) | payer BC, SELFPAY ==
--- NOTE | 2025-06-28 08:31 | A.OFFPC_ITS ---
Vital Signs 06/28/25 08:34 06/28/25 08:53 Height 5 ft 10 in Weight 301 lb 6 oz BMI 43.2 BP 160/80 H 138/78 Blood Pressure Location Lt brachial Lt brachial Position Sitting Sitting Respiration 13 Pulse 75 Pulse Source Pulse Oximeter Temp 97.2 F Temp Source Oral Pulse Oximetry (%) 96 Oxygen Delivery Method Room Air Intake Visit Reasons: 6 WEEKS FU CELEXA START Intake Note: Follow up on med start Technical Administrator Required: No Allergies No Known Allergies Allergy (Verified 06/28/25 08:42) Medication List - Last Reconciled 06/28/25 by Vannesa Davis, [employer]- atorvastatin (Lipitor) 20 mg PO BEDTIME citalopram (Celexa) 20 mg PO DAILY metformin ER 500 mg PO DAILY multivitamin with iron 1 tab PO DAILY omeprazole 40 mg PO DAILY Tobacco use date assessed: 06/28/25 Dental Screening Dental Screen Date: 06/28/25 Did you have a dental visit in the last 12 months?: Yes Did you have a dental problem in the last 6 months where you did not have access to dental care?: No Was dental information given to patient?: Patient has dentist HPI HPI Comments History of Present Illness Details 45 y/o M with GERD, barretts esoph, Fatt y liver, hld , obese, prediabe cole, anemia, diverticulitis SurgHx:: Appy age 14, Kidney surgery at [facility]: Dad: Lung Ca Schizophrenia. Mom Breast Ca SocHx: Nonsmoker, EtOH Occasional. No Drugs. 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 Generalized Anxiety Disorder: - No significant symptom improvement wit h Celexa 20 mg. Taking in the AM before going to bed. Denies sI/HI. Bladder Wall Thickening: - Planned urology evaluation; genital wa rts persist. Appt 08/06/25 [facility] Solano's Esophagus: - Managed condition; stable. on PPI Anemia: - Chronic condition persists. Taking MVI with Iron - Has not had appt scheduled w/ [facility] GI, playing phone tag. Non-Alcoholic Fatty Liver Disease: - Reduced alcohol intake, motivated by h ealth risks. Essential Hypertension: - Borderline high BP; worse since reduci ng etoh. Did have dizzy episode w/o chest pain or syncope while laughing 1 week ago. Insomnia: - Relies on alcohol; difficulty sleeping otherwise. Prediabetes: - A1c improved from 5.8 to 5.3. TAking M etformin Hyperlipidemia: - Controlled with atorvastatin. Review of Systems - Neurological: Reports dizziness when l aughing. - Gastrointestinal: Denies changes in Ba rrett's esophagus symptoms. - Endocrine: Denies symptoms related to diabetes. - Cardiovascular: Reports having borderl ine high blood pressure. - Dermatological: Reports persistent gen ital warts. - Sleep: Reports difficulty in sleeping without alcohol intake. Exam Awake alert NAD PERRLA, EOMI, scleras noniteric bilat RRR LS CTAB abd soft, nontender, normoactive bs x 4, + hepatomegaly trace to +1 edema LLE,decreased PP, skin intact, RLE no edema normal PP Skin to LLE is firm below the knee, no erythema Left flank incision well healed. Warts noted on shaft of penis at least 6 of them Mildly anxious, pleasant and cooperative Results - Labs: A1c at 5.3, previously 5.8. Discussion Notes I discussed with the patient the continuation and dose escalation of Celexa from 20 mg to 40 mg due to inadequate symptom control. We reviewed alternatives and the plan to monitor for side effects. The patient acknowledges the upcoming urology evaluation for bladder wall thickening and genital warts and expresses understanding. I plan to add clonidine to aid with both hypertension and insomnia, reviewing the importance of lifestyle changes and potential d iscontinuation of alcohol as a sleep aid. Follow-up will involve reassessment of blood pressure and sleep quality, and evaluation of the increased anxiety medication. The current management of anemia, Solano's esophagus, and liver condition is noted. The patient is advised to continue with dietary modifications and reduced alcohol intake for liver health and general wellness. Patient was given time to ask questions. All questions were answered to their satisfaction. Assessment and Plan 1. Generalized Anxiety Disorder - Celexa increased to 40 mg. 2. Bladder Wall Thickening - Await evaluation; continue monitoring. 3. Solano's Esophagus - Current management continued. New [facility] GI referral placed today. 4. Anemia - Chronic issue, stable. 5. Non-Alcoholic Fatty Liver Disease - Decreased alcohol, lifestyle changes. 6. Essential Hypertension - Start clonidine 0.1 mg. Titrate to eff ect. 7. Insomnia - Clonidine added for sleep. 8. PreDM - Manage as per plan, improved A1c. 9. Hyperlipidemia - Continue atorvastatin. Patient Instructions - Take Celexa 40 mg in the morning. - Take clonidine 0.1 mg when coming home to help with blood pressure and sleep. - Reduce alcohol intake further and focu s on liver health. - Schedule and attend the urology appoin [facility]. - Continue current medications and repor t any side effects. - Follow up in six weeks or sooner if sy mptoms change. Consent Informed consent was obtained for increasing Celexa to 40 mg and starting clonidine for hypertension and insomnia. The patient was advised about potential side effects, including potential changes in mood and blood pressure. Alternatives, including lifestyle changes and other medications, were reviewed. The patient verbalized understanding and agreement with the proposed plan. Patient was informed and verbally consented to the use of an ambient scribe for clinic note documentation during this visit. Total time spent caring for the patient today was 40 minutes. This includes time spent before the visit reviewing the chart, time spent during the visit, and time spent after the visit on documentation, reviewing laboratory results, diagnostic imaging, medications, performing a medically necessary evaluation, counseling on diagnoses, care coordination, ordering appropriate tests, ordering appropriate medications, review of tests performed by other providers, reporting test results with the patient, communication with other healthcare providers. [facility] Medical History Celiac disease Morbid obesity Family history of colon cancer in father History of Solano's esophagus GERD (gastroesophageal reflux disease) Surgical History History of colonoscopy (~2020) History of esophagogastroduodenoscopy (EGD) (~2020) History of appendectomy (~1993) Family History Mother No problems noted. 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 Current occupational exposures/hazards: No Cognitive needs: No Hearing needs: No Vision needs: No Questionnaire Thrive Questionnaire Date Thrive assessed: 11/18/24 I am a: Patient What is your living situation today?: I have a steady place to live Within the past 12 months, did the food you bought not last and you didn't have the money to get more?: Never true Within the past 12 months, did you worry whether your food would run out before you got money to buy more?: Never true Do you have trouble paying for medicines?: No Do you have trouble getting transportation to medical appointments?: No Do you have trouble paying your heating and electricity bill?: No Do you have trouble taking care of your child, family member or friend?: No Do you have trouble with day-to-day activities such as bathing, preparing meals, shopping, managing finances, etc.?: No Are you currently unemployed and looking for a job?: No Are you interested in more education?: No Please select the resources that you would like help with: None Currently or been in a relationship where the following occur: No concerns reported THRIVE Score: 0 HASMUKH-7 AMB Questionnaire HASMUKH-7 Date HASMUKH - 7 assessed: 12/04/24 Source: Developed by Drs. Ariel Whittington, Lanette Macario, Blaine Mauricio and colleagues, with an educational tawanda from [employer]. Physical exam (Primary Care) Vital Signs: Last Vital Signs Temp 97.2 F 06/28/25 08:34 Pulse 75 06/28/25 08:34 Resp 13 06/28/25 08:34 BP 160/80 H 06/28/25 08:34 Pulse Ox 96 06/28/25 08:34 Oxygen Delivery Method Room Air 06/28/25 08:34 BMI result Body Mass Index 43.2 Tobacco/Smoking Status: Tobacco use Status Tobacco use date assessed 06/28/25 06/28/25 08:35 Patient Tobacco Use Status Never used Tobacco 06/28/25 08:35 e-Cigarette/Vaping Use Never Used 06/28/25 08:35 Thrive Assessment: Date of Thrive Assessment Date Thrive assessed 11/18/24 06/28/25 08:35 Currently or been in a relationship where the following occur: No concerns reported Results AMB Hemoglobin A1c AMB Hemoglobin A1c 5.3 % Last Edit by Waldo Logan MA on 06/28/25 08:44 Coding Level of Care Code Est Pt Level 5 (95007) Complex EM visit Add On G2211 Diagnoses Gastroesophageal reflux disease with esophagitis without hemorrhage K21.00 Esophagitis presence: with esophagitis Esophagitis bleeding: without hemorrhage History of Solano's esophagus Z87.19 Family history of colon cancer in father Z80.0 Celiac disease K90.0 Iron deficiency anemia, unspecified iron deficiency anemia type D50.9 Iron deficiency anemia type: unspecified iron deficiency Nonalcoholic hepatosteatosis K76.0 Hiatal hernia with GERD without esophagitis K44.9; K21.9 Diverticulosis K57.90 Moderate mixed hyperlipidemia not requiring statin therapy E78.2 Hyperlipidemia type: moderate mixed hyperlipidemia not requiring statin therapy Prediabetes R73.03 Bladder wall thickening N32.89 Penile wart A63.0 HASMUKH (generalized anxiety disorder) F41.1 Other secondary hypertension I15.8 Hypertension type: other secondary hypertension Alcohol use disorder F10.90 Alcohol induced insomnia F10.982 Assessment & Plan Assessment & Plan (1) GERD (gastroesophageal reflux disease): Code(s): K21.9 - Gastro-esophageal reflux disease without esophagitis Category: Medical Qualifiers: Esophagitis presence: with esophagitis Esophagitis bleeding: without hemorrhage Qualified Code(s): K21.00 - Gastro-esophageal reflux disease with esophagitis, without bleeding (2) History of Solano's esophagus: Code(s): Z87.19 - Personal history of other diseases of the digestive system Category: Medical (3) Family history of colon cancer in father: Code(s): Z80.0 - Family history of malignant neoplasm of digestive organs Category: Medical (4) Celiac disease: Code(s): K90.0 - Celiac disease Category: Medical (5) Iron deficiency anemia: Code(s): D50.9 - Iron deficiency anemia, unspecified Category: Medical Qualifiers: Iron deficiency anemia type: unspecified iron deficiency Qualified Code(s): D50.9 - Iron deficiency anemia, unspecified (6) Nonalcoholic hepatosteatosis: Comment: [place] 12/2024 Hepatomegaly and hepatic steatosis. Borderline splenomegaly. Code(s): K76.0 - Fatty (change of) liver, not elsewhere classified Category: Medical (7) Hiatal hernia with GERD without esophagitis: Code(s): K44.9 - Diaphragmatic hernia without obstruction or gangrene; K21.9 - Gastro- esophageal reflux disease without esophagitis Category: Medical (8) Diverticulosis: Code(s): K57.90 - Diverticulosis of intestine, part unspecified, without perforation or abscess without bleeding Category: Medical (9) Hyperlipidemia: Code(s): E78.5 - Hyperlipidemia, unspecified Category: Medical Qualifiers: Hyperlipidemia type: moderate mixed hyperlipidemia not requiring statin therapy Qualified Code(s): E78.2 - Mixed hyperlipidemia (10) Prediabetes: Code(s): R73.03 - Prediabetes Category: Medical (11) Bladder wall thickening: Code(s): N32.89 - Other specified disorders of bladder Category: Medical (12) Penile wart: Code(s): A63.0 - Anogenital (venereal) warts Category: Medical (13) HASMUKH (generalized anxiety disorder): Code(s): F41.1 - Generalized anxiety disorder Category: Medical (14) HTN (hypertension): Code(s): I10 - Essential (primary) hypertension Category: Medical Qualifiers: Hypertension type: other secondary hypertension Qualified Code(s): I15.8 - Other secondary hypertension (15) Alcohol use disorder: Code(s): F10.90 - Alcohol use, unspecified, uncomplicated Category: Medical (16) Alcohol induced insomnia: Code(s): F10.982 - Alcohol use, unspecified with alcohol-induced sleep disorder Category: Medical Plan , Orders: Orders AMB Hemoglobin A1c Today Z13.9 - Encounter for screening, unspecified Referrals Gastroenterology Referral D50.9 - Iron deficiency anemia, unspecified, K21.00 - Gastro-esophageal reflux disease with esophagitis, without bleeding, K21.9 - Gastro-esophageal reflux disease without esophagitis, K44.9 - Diaphragmatic hernia without obstruction or gangrene, K57.90 - Diverticulosis of intestine, part unspecified, without perforation or abscess without bleeding, K76.0 - Fatty (change of) liver, not elsewhere classified, K90.0 - Celiac disease, Z80.0 - Family history of malignant neoplasm of digestive organs, Z87.19 - Personal history of other diseases of the digestive system Medications: New citalopram (Celexa) 40 mg PO DAILY 30 tabs 1RF clonidine HCl 0.1 mg PO BEDTIME 90 tabs 0RF Discontinued citalopram (Celexa) 1/2 tab daily x 2 weeks then increase to 1 tab daily Discontinued Reason: Patient Completed Course 20 mg PO DAILY 30 tabs 1RF
[2025-06-28 08:34] VITALS: BP 160/80; PULSE 75; RESP 13; TEMP 36.2; O2SAT 96; BMI 43.2
[2025-06-28 08:53] VITALS: BP 138/78
--- OUTSIDE RECORDS SUMMARY | 2025-06-28 09:34 | XMS_ITS | Clinical Summary ---
Author Organization [facility] Address [address] [place] [address] Care Team Providers Care Communications Officer Name Role Phone Cristy Georges MD Primary Care Provider Unav ailable Surgical History Surgery Date Site/Laterality Comments APPENDECTOMY PROCEDURE: HISTORICAL APPENDECTOMY OTHER SURGICAL HISTORY surgery on kidney -infant PROCEDURE: [place] NEPHROLITHOTOMY COMP CGEN KDN ABNORMALITY ESOPHAGOGASTRODUODENOSCOPY 12/11/2005 PROCEDURE: [place] ESOPHAGOGASTRODUODENOSCOPY TRANSORAL DIAGNOSTIC; COMMENT: Dr Stone: 3 cm H/H and erosive esophagitis COLONOSCOPY 11/24/13 Dr Garza PROCEDURE: HISTORICAL COLONOSCOPY; COMMENT: negative CN to terminal ileum OTHER SURGICAL HISTORY 11/24/13 Dr aGrza PROCEDURE: UPPER GASTROINTESTINAL ENDOSCOPY IN; COMMENT: esophagitis, [...] (2 - Td or Tdap) 12/12/2020 12/12/2010 Depression Screening 10/11/2024 COVID-19 Vaccine (1 - 2023-2 5 season) 2025 Influenza Vaccine (#1) 2025 RSV Immunization Adult Patie nts (1 - 1-dose 75+ series) 2057 HIB Vaccines Aged Out No longer eligi [...] age to complete this topic Care Teams Communications Officer Relationship Specialty Start Date End Date Cristy Georges MD PCP - General Internal Medicine 09/11/13
== END 2025-06-28 08:56 | disposition home or self-care (01) ==
LOC: HO.HMCFM 08:28
PROVIDERS: PCP Nurse Practitioner Family; Visit Provider Nurse Practitioner Family
DX: K21.00 Gastro-esophageal reflux disease with esophagitis, without bleeding (principal); F10.982 Alcohol use, unspecified with alcohol-induced sleep disorder; K90.0 Celiac disease; Z87.19 Personal history of other diseases of the digestive system; Z80.0 Family history of malignant neoplasm of digestive organs; D50.9 Iron deficiency anemia, unspecified; K76.0 Fatty (change of) liver, not elsewhere classified; K44.9 Diaphragmatic hernia without obstruction or gangrene; K21.9 Gastro-esophageal reflux disease without esophagitis; K57.90 Diverticulosis of intestine, part unspecified, without perforation or abscess without bleeding; E78.2 Mixed hyperlipidemia; R73.03 Prediabetes

== ENCOUNTER → 2025-06-28 08:28 | Outpatient (BNVA) | payer BC, SELFPAY | PROVIDERS: PCP Nurse Practitioner Family; Visit Provider Nurse Practitioner Family | DX: F41.1 Generalized anxiety disorder (principal); N32.89 Other specified disorders of bladder; D64.9 Anemia, unspecified; K76.0 Fatty (change of) liver, not elsewhere classified; I10 Essential (primary) hypertension; R73.03 Prediabetes; E78.5 Hyperlipidemia, unspecified; K21.00 Gastro-esophageal reflux disease with esophagitis, without bleeding; K90.0 Celiac disease; D50.9 Iron deficiency anemia, unspecified; K44.9 Diaphragmatic hernia without obstruction or gangrene; K57.90 Diverticulosis of intestine, part unspecified, without perforation or abscess without bleeding; E78.2 Mixed hyperlipidemia; A63.0 Anogenital (venereal) warts; I15.8 Other secondary hypertension; F10.982 Alcohol use, unspecified with alcohol-induced sleep disorder; Z87.19 Personal history of other diseases of the digestive system; Z80.0 Family history of malignant neoplasm of digestive organs | CPT/HCPCS: 83036 ==

== ENCOUNTER 2025-07-31 08:54 | Outpatient (AMB) | payer BC, SELFPAY ==
--- NOTE | 2025-07-31 08:58 | MHC.PC.OV ---
Vital Signs 07/31/25 09:06 Height 5 ft 10 in Weight 294 lb 2 oz BMI 42.2 BP 146/76 H Blood Pressure Location Lt brachial Position Sitting Respiration 13 Pulse 76 Pulse Source Pulse Oximeter Temp 97.2 F Temp Source Oral Pulse Oximetry (%) 99 Oxygen Delivery Method Room Air Intake Visit Reasons: anxiety med, rectal bleed Intake Note: Patient c/o rectal bleeding a week ago. Patient wants to stop anxiety meds. Aerial Photograph Interpreter Required: No Allergies No Known Allergies Allergy (Verified 07/31/25 08:59) Medication List - Last Reconciled 07/31/25 by Vannesa Davis, STEAK SAUCE MAKER- atorvastatin (Lipitor) 20 mg PO BEDTIME citalopram (Celexa) 40 mg PO DAILY clonidine HCl 0.1 mg PO BEDTIME metformin ER 500 mg PO DAILY multivitamin with iron 1 tab PO DAILY omeprazole 40 mg PO DAILY Tobacco use date assessed: 07/31/25 Dental Screening Dental Screen Date: 07/31/25 Did you have a dental visit in the last 12 months?: Yes Did you have a dental problem in the last 6 months where you did not have access to dental care?: No Was dental information given to patient?: Patient has dentist HPI HPI Comments History of Present Illness Details 45 y/o M with GERD, barretts esoph, Fatty liver, hld , obese, prediabetes, anemia, diverticulitis , fhx colon ca (dad) SurgHx:: Appy age 14, Kidney surgery at [facility]: Dad: Lung Ca Schizophrenia. Mom Breast Ca SocHx: Nonsmoker, EtOH Occasional. No Drugs. 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, , has 4 children Health Maintenance Tdap 2024 Flu declined 07/31/25 colon 2020 Specialist GI referred back to [facility] [place],appt pending History of Present Illness The patient is a 45-year-old male presenting with rectal bleeding and desire to stop mood medications due to insomnia Rectal bleeding: - Persistent bleeding over a month - Episodes with bowel movements - Family history of colon cancer - Prior referrals to GI unscheduled, is playing phone tag w [facility] Insomnia: - Associated with citalopram dosage of 40mg which was increased at last visit - Inability to sleep despite tiredness - Correlates with increase of citalopram - Memory issues, confusion Dizziness: - Sudden dizziness onset @ the time of insomnia episodes. Anxiety: - No improvement with medication adjustment, in fact worse. Review of Systems - Gastrointestinal: Reports rectal bleeding and altered stool appearance. - Neurological: Reports dizziness, confusion, and insomnia. - Psychiatric: Reports personality changes and persistent anxiety. Physical Exam General: Well developed, well nourished, in no acute distress. Appears stated age. Head: Normocephalic, atraumatic. Eyes: Pupils are equal, round and reactive to light and accommodation. Conjunctivae are clear. Lungs: speaking in full sentences Heart: Regular rate and rhythm. No murmurs, click, rubs or gallops are noted. : Normal rectal tone, no external hemorrhouds, fissures or skin tags. Rectal exam done. Tolerated well. DEclined director financial planning. Negative OB at time of visit. Psych: Mood and affect appropriate, but patient reports personality changes and sleep disturbances possibly related to citalopram 40 mg. Results - Diagnostic tests: Rectal examination negative for immediate rectal bleeding or blood in stool. Discussion Notes I discussed with the patient the concern about persistent rectal bleeding, especially with a family history of colon cancer. I strongly emphasized the need to visit gastroenterology without further delay and suggested visiting them directly due to scheduling issues. Although the rectal exam today was negative for blood, the possibility of hemorrhoidal irritation was considered. Regarding mood symptoms, I recommended reducing the citalopram dosage back to 20 mg due to adverse effects, using tablets to split the dose, and continuing clonidine. Follow-up was scheduled to assess changes after reduction in medication. Discussed potential adjustments if symptoms do not improve. The necessity for ongoing monitoring of anemia was reiterated, highlighting the benefits of continued iron supplementation. I offered reassurance regarding the workup for bleeding and emphasized the importance of arranging all necessary GI consultations. Patient was given time to ask questions. All questions were answered to their satisfaction. Assessment and Plan 1. Rectal bleeding - Urgent GI referral, suspect hemorrhoidal issue. 2 Insomnia - Reduce citalopram to 20 mg. - Monitor after medication dose change. 3. Dizziness - Observe post-medication adjustment See if improves. 4. Anxiety - Continue clonidine, adjust citalopram. 5. Anemia - Continue iron, monitor through GI consultation. 6. Declined flu shot Patient Instructions - Go directly to gastroenterology for evaluation. - Decrease citalopram dose by splitting tablets. - Continue taking clonidine as prescribed. - Continue iron supplements for anemia. - Follow-up appointment scheduled to assess changes. - Watch for any worsening symptoms or changes. - RTO next week as scheduled for close fu, sooner PRN Consent Patient was informed and verbally consented to the use of an ambient scribe for clinic note documentation during this visit. [facility] Medical History Celiac disease Morbid obesity Family history of colon cancer in father History of Solano's esophagus GERD (gastroesophageal reflux disease) Surgical History History of colonoscopy (~2020) History of esophagogastroduodenoscopy (EGD) (~2020) History of appendectomy (~1993) Family History Mother No problems noted. 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 Current occupational exposures/hazards: No Cognitive needs: No Hearing needs: No Vision needs: No Questionnaire Thrive Questionnaire Date Thrive assessed: 07/31/25 I am a: Patient What is your living situation today?: I have a steady place to live Within the past 12 months, did the food you bought not last and you didn't have the money to get more?: Never true Within the past 12 months, did you worry whether your food would run out before you got money to buy more?: Never true Do you have trouble paying for medicines?: No Do you have trouble getting transportation to medical appointments?: No Do you have trouble paying your heating and electricity bill?: No Do you have trouble taking care of your child, family member or friend?: No Do you have trouble with day-to-day activities such as bathing, preparing meals, shopping, managing finances, etc.?: No Are you currently unemployed and looking for a job?: No Are you interested in more education?: No Please select the resources that you would like help with: None Currently or been in a relationship where the following occur: No concerns reported THRIVE Score: 0 HASMUKH-7 AMB Questionnaire HASMUKH-7 Date HASMUKH - 7 assessed: 12/04/24 Source: Developed by Drs. Ariel Whittington, Lanette Macario, Blaine Mauricio and colleagues, with an educational tawanda from [employer]. Physical exam (Primary Care) Tobacco/Smoking Status: Tobacco use Status Tobacco use date assessed 07/31/25 07/31/25 09:02 Patient Tobacco Use Status Never used Tobacco 07/31/25 09:02 e-Cigarette/Vaping Use Never Used 07/31/25 09:02 Thrive Assessment: Date of Thrive Assessment Date Thrive assessed 07/31/25 07/31/25 09:02 Currently or been in a relationship where the following occur: No concerns reported Results AMB Fecal Occult Blood X1 AMB Fecal Occult Blood X1 Negative Last Edit by SWETHA Andrews on 07/31/25 09:21 Coding Level of Care Code Est Pt Level 3 (43265) Complex EM visit Add On G2211 Diagnoses Gastroesophageal reflux disease with esophagitis without hemorrhage K21.00 Esophagitis bleeding: without hemorrhage Esophagitis presence: with esophagitis History of Solano's esophagus Z87.19 Nonalcoholic hepatosteatosis K76.0 Celiac disease K90.0 Diverticulosis K57.90 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 Hiatal hernia with GERD without esophagitis K44.9; K21.9 Left sided abdominal pain R10.9 Elevated transaminase level R74.01 Iron deficiency anemia, unspecified iron deficiency anemia type D50.9 Iron deficiency anemia type: unspecified iron deficiency Influenza vaccination declined Z28.21 Rectal bleeding K62.5 HASMUKH (generalized anxiety disorder) F41.1 Assessment & Plan Assessment & Plan (1) GERD (gastroesophageal reflux disease): Code(s): K21.9 - Gastro-esophageal reflux disease without esophagitis Category: Medical Qualifiers: Esophagitis bleeding: without hemorrhage Esophagitis presence: with esophagitis Qualified Code(s): K21.00 - Gastro-esophageal reflux disease with esophagitis, without bleeding (2) History of Solano's esophagus: Code(s): Z87.19 - Personal history of other diseases of the digestive system Category: Medical (3) Nonalcoholic hepatosteatosis: Comment: [place] 12/2024 Hepatomegaly and hepatic steatosis. Borderline splenomegaly. Code(s): K76.0 - Fatty (change of) liver, not elsewhere classified Category: Medical (4) Celiac disease: Code(s): K90.0 - Celiac disease Category: Medical (5) Diverticulosis: Code(s): K57.90 - Diverticulosis of intestine, part unspecified, without perforation or abscess without bleeding Category: Medical (6) Incarcerated paraesophageal hernia: Code(s): K44.0 - Diaphragmatic hernia with obstruction, without gangrene Category: Medical (7) Hiatal hernia with GERD without esophagitis: Code(s): K44.9 - Diaphragmatic hernia without obstruction or gangrene; K21.9 - Gastro-esophageal reflux disease without esophagitis Category: Medical (8) Left sided abdominal pain: Code(s): R10.9 - Unspecified abdominal pain Category: Medical (9) Elevated transaminase level: Code(s): R74.01 - Elevation of levels of liver transaminase levels Category: Medical (10) Iron deficiency anemia: Code(s): D50.9 - Iron deficiency anemia, unspecified Category: Medical Qualifiers: Iron deficiency anemia type: unspecified iron deficiency Qualified Code(s): D50.9 - Iron deficiency anemia, unspecified (11) Influenza vaccination declined: Onset Date: ~07/31/25 Code(s): Z28.21 - Immunization not carried out because of patient refusal Category: Medical (12) Rectal bleeding: Code(s): K62.5 - Hemorrhage of anus and rectum Category: Medical (13) HASMUKH (generalized anxiety disorder): Code(s): F41.1 - Generalized anxiety disorder Category: Medical Plan ,. Orders: Orders AMB Stool Occult Bld Single Today K62.5 - Hemorrhage of anus and rectum Medications: Changed From citalopram (Celexa) 40 mg PO DAILY 30 tabs 1RF To citalopram (Celexa) 20 mg (1/2 x 40 mg) PO DAILY 30 tabs 1RF
[2025-07-31 09:06] VITALS: BP 146/76; PULSE 76; RESP 13; TEMP 36.2; O2SAT 99; BMI 42.2
== END 2025-07-31 10:57 | disposition home or self-care (01) ==
LOC: HO.HMCFM 08:55
PROVIDERS: PCP Nurse Practitioner Family; Visit Provider Nurse Practitioner Family
DX: K21.00 Gastro-esophageal reflux disease with esophagitis, without bleeding (principal); Z87.19 Personal history of other diseases of the digestive system; K76.0 Fatty (change of) liver, not elsewhere classified; K90.0 Celiac disease; K57.90 Diverticulosis of intestine, part unspecified, without perforation or abscess without bleeding; K44.0 Diaphragmatic hernia with obstruction, without gangrene; K44.9 Diaphragmatic hernia without obstruction or gangrene; K21.9 Gastro-esophageal reflux disease without esophagitis; R10.9 Unspecified abdominal pain; R74.01 Elevation of levels of liver transaminase levels; D50.9 Iron deficiency anemia, unspecified; Z28.21 Immunization not carried out because of patient refusal; K62.5 Hemorrhage of anus and rectum; F41.1 Generalized anxiety disorder

== ENCOUNTER 2025-08-06 08:55 | Outpatient (AMB) | payer BC, SELFPAY ==
--- NOTE | 2025-08-06 09:02 | A.OFFVIS_ITS ---
Intake Visit Reasons: bladder wall thickening Intake Note: Patient is present for bladder wall thickening Urology Medication:none Antibiotic Allergy:none Blood Thinner:none today's pvr: 0ml's Courtroom Deputy Or Calendar Clerk Required: No Allergies No Known Allergies Allergy (Verified 08/06/25 09:42) Medication List - Last Reconciled 08/06/25 by RENNY Caldera-GEOVANI atorvastatin (Lipitor) 20 mg PO BEDTIME clonidine HCl 0.1 mg PO BEDTIME metformin ER 500 mg PO DAILY multivitamin with iron 1 tab PO DAILY omeprazole 40 mg PO DAILY HPI Comments Details: Kunal is a 45-year-old patient of Dr. Davis. He has a past medical history of celiac disease, GERD, obesity, and Solano's esophagus. He presents to the office today as a new patient for bladder wall thickening. In discussion with the patient today he reports having had recent imaging that noted bladder wall thickening and recommendations were made for urology referral for further assessment evaluation. These results were reviewed and communicated with the patient today. CT abdomen and pelvis with IV contrast from outside facility ([facility]) 05/04 noted bilateral kidneys with no hydronephrosis, calculi, and or renal masses. The bladder appears thickened and irregular per radiology report. When asked he denies any bothersome urinary issues or concerns. He denies urinary urgency, urinary frequency, incontinence, nocturia, hematuria, dysuria, foul smelling urine, changes to urinary stream, flank pain, fever, and or chills. He is happy with his current voiding parameters. In office urinalysis results reviewed with the patient today. PVR 0 mL. We did discussed potential signs and symptoms and causes of bladder wall thickening. When asked he is unsure if he has a family history of prostate cancer. He discusses having followed up with his PCP and discussing his history of genital warts with an active area. In assessment of the patient today the penis is circumcised there is 1 raised 3 mm area to the right base of the penis otherwise no open areas, lesions, and or drainage noted throughout the area. We did discussed further treatment options to include in office cryotherapy verses surgical intervention. We discussed risks and benefits of these interventions. All questions were answered. He otherwise offers no other issues or concerns at this time. Urinary Symptoms Review - No urinary frequency, urgency, or nocturia reported. - No hesitancy or incomplete bladder emptying noted. Discussion Notes The patient was informed about the bladder wall thickening observed in the CT scan, which is not currently causing any urinary symptoms or incomplete bladder emptying. We discussed the potential causes of bladder wall thickening, including medication effects and bladder compliance issues. Regarding the genital warts, I explained the treatment options, including cryotherapy and surgical removal under anesthesia. The patient opted to start with cryotherapy, which may require multiple sessions. We also discussed the importance of HPV vaccination to prevent further wart development. The patient was advised to avoid shaving the genital area to prevent spreading the warts. A PSA test was recommended due to potential family history of cancer, and the patient agreed to have this done before the next appointment. [facility] Medical History Celiac disease Morbid obesity Family history of colon cancer in father History of Solano's esophagus GERD (gastroesophageal reflux disease) Surgical History History of colonoscopy (~2020) History of esophagogastroduodenoscopy (EGD) (~2020) History of appendectomy (~1993) Family History Mother No problems noted. 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 Current occupational exposures/hazards: No Cognitive needs: No Hearing needs: No Vision needs: No Review of Systems Const All systems reviewed & are unremarkable except as noted in HPI and below Physical Exam Const General: cooperative, healthy appearing, comfortable, no acute distress, well developed, alert and awake Orientation/consciousness: patient oriented x3 Limitations: no limitations HEENT Head: Yes normal to inspection, Yes normocephalic and Yes atraumatic Ears: hearing grossly normal bilaterally Eyes General: appearance normal, both eyes and all related structures Neck Neck: Yes normal visual inspection and Yes trachea midline Chest Chest palpation & inspection: normal inspection of the chest Resp Effort & Inspection: normal respiratory effort and able to speak in complete sentences Cardio Rate: regular rate GI Inspection: Yes normal to inspection General: Yes no CVA tenderness Back/Spine/Pelvis Back: no CVA tenderness Skin General skin exam: no rashes or lesions noted Neuro General: patient oriented x3 Extrem General: Yes normal to inspection Psych Appearance: grossly normal and well kempt Mental Status: mental status grossly normal Speech and movement: Normal speech and movement present and Clear speech present Affect: normal affect Attitude: cooperative Thought process: Normal thought process present Thought content: Normal thought content present Insight: Fair insight present (Psych) Judgement: Fair judgement present (Psych) Office Procedures Post Void Residual Post Residual Void Post Void Residual (PVR): 0 [id number] Void Residual by ultrasound Results AMB Urinalysis, Automated UA Leukoctes 0 Coreen/uL Last Edit by VIVI Guerra on 08/06/25 09:22 UA Nitrite Negative Last Edit by VIVI Guerra on 08/06/25 09:22 UA Urobilinogen 0.2 mg/dL Last Edit by VIVI Guerra on 08/06/25 09:2 2 UA Protein 15 mg/dL Last Edit by VIVI Guerra on 08/06/25 09:22 UA pH 6.0 Last Edit by VIVI Guerra on 08/06/25 09:22 UA Blood 0 Jono/uL Last Edit by VIVI Guerra on 08/06/25 09:22 UA Specific Whitmer 1.025 Last Edit by VIVI Guerra on 08/06/25 09: 22 UA Ketone Negative Last Edit by VIVI Guerra on 08/06/25 09:22 UA Bilirubin 1 mg/dL Last Edit by VIVI Guerra on 08/06/25 09:22 UA Glucose 0 mg/dL Last Edit by VIIV Guerra on 08/06/25 09:22 Results Reviewed Results Reviewed: Laboratory Last Values Urine pH (Auto) 6.0 08/06/25 09:21 Specific Whitmer (Auto) 1.025 08/06/25 09:21 Urine Protein (Auto) 15 mg/dL 08/06/25 09:21 Glucose (UA)(Auto) 0 mg/dL 08/06/25 09:21 Urine Ketones (Auto) Negative 08/06/25 09:21 Urine Blood (Auto) 0 Jono/uL 08/06/25 09:21 Urine Nitrite (Auto) Negative 08/06/25 09:21 Urine Bilirubin (Auto) 1 mg/dL 08/06/25 09:21 Urine Urobilinogen (Auto) 0.2 mg/dL 08/06/25 09:21 Leukocyte Esterase (Auto) 0 Coreen/uL 08/06/25 09:21 Assessment & Plan Assessment & Plan (1) Bladder wall thickening: Code(s): N32.89 - Other specified disorders of bladder Category: Medical (2) Warts, genital: Code(s): A63.0 - Anogenital (venereal) warts Category: Medical Plan In office urinalysis results reviewed with the patient today; as noted above. PVR 0 mL. We did discussed at length potential causes of bladder wall thickening as well as genital warts and further interventions and risks and benefits of these interventions. He currently denies any bothersome urinary issues or concerns. He reports be happy with current voiding parameters. All questions were answered. Will obtain PSA for further assessment evaluation. Will schedule for in office cryotherapy as discussed; or sooner with any issues, concerns, and or questions. Orders: Orders AMB Urinalysis Automated Today Z13.9 - Encounter for screening, unspecified Prostate Specific Antigen Today N40.0 - Benign prostatic hyperplasia without lower urinary tract symptoms Patient Instructions: The patient had an opportunity to ask questions regarding the treatment plan. All questions were answered. Physical exam, labs, and imaging were discussed and reviewed in detail. As well as risks, benefits, and discussion of treatment choices. No major barriers to understanding were identified. The patient expressed understanding and agreement with the above treatment plan. The patient was made aware they should contact our office by phone for worsening of their current condition, the appearance of new symptoms, or with any questions or concerns. Compliance is encouraged with any medications and follow up testing that is ordered. It is a privilege to be allowed the opportunity to participate in? your urological care.? Again, if you have any questions or concerns If you have any questions or concerns please do not hesitate to contact me. The office is [phone]. This note is constructed using voice recognition software. While every effort has been made to ensure accuracy electric stove mechanic errors may have been included. Yours sincerely, Syl Schneider, POLYSOMNOGRAPHIC TECH-BC Coding Level of Care Code New Pt Level 3 (05356) Diagnoses Bladder wall thickening N32.89 Warts, genital A63.0 CPT Codes Post Residual Void - PVR CPT Code: 96347-[id number] Void Residual by ultrasound ([id number])
--- OUTSIDE RECORDS SUMMARY | 2025-08-06 09:37 | XMS_ITS | Clinical Summary ---
Author Organization [facility] Address [address] [place] [address] Care Team Providers Care Fresh Foods Clerk Name Role Phone Cristy Georges MD Primary Care Provider Unav ailable Surgical History Surgery Date Site/Laterality Comments APPENDECTOMY PROCEDURE: HISTORICAL APPENDECTOMY OTHER SURGICAL HISTORY surgery on kidney -infant PROCEDURE: [place] NEPHROLITHOTOMY COMP CGEN KDN ABNORMALITY ESOPHAGOGASTRODUODENOSCOPY 12/11/2005 PROCEDURE: [place] ESOPHAGOGASTRODUODENOSCOPY TRANSORAL DIAGNOSTIC; COMMENT: Dr Stone: 3 [...] of 3 - 19+ 3-dose series) 2001 HPV Vaccines (1 - 3-dose SCD M series) 2009 DTaP,Tdap,and Td Vaccines (2 - Td or [...] age to complete this topic Care Teams Fresh Foods Clerk Relationship Specialty Start Date End Date Cristy Georges MD PCP - General Internal Medicine 09/11/13
== END 2025-08-06 09:34 | disposition home or self-care (01) ==
LOC: HO.HUSH 08:56
PROVIDERS: PCP Nurse Practitioner Family; Visit Provider Nurse Practitioner Family
DX: N32.89 Other specified disorders of bladder (principal); A63.0 Anogenital (venereal) warts; Z13.9 Encounter for screening, unspecified
CPT/HCPCS: 99203

== ENCOUNTER → 2025-08-06 08:55 | Outpatient (BNVA) | payer BC, SELFPAY | PROVIDERS: PCP Nurse Practitioner Family; Visit Provider Nurse Practitioner Family | DX: N40.0 Benign prostatic hyperplasia without lower urinary tract symptoms (principal) | CPT/HCPCS: 51798; 81003 ==

== ENCOUNTER 2025-08-10 08:22 | Outpatient (AMB) | payer BC, SELFPAY ==
--- NOTE | 2025-08-10 08:24 | A.OFFPC_ITS ---
Vital Signs 08/10/25 08:26 Height 5 ft 10 in Weight 296 lb BMI 42.5 BP 132/70 Blood Pressure Location Lt brachial Position Sitting Respiration 13 Pulse 93 Pulse Source Pulse Oximeter Temp 97.2 F Temp Source Oral Pulse Oximetry (%) 97 Oxygen Delivery Method Room Air Intake Visit Reasons: 6 WEEKS FU CELEXA START Intake Note: 6 Weeks follow up to review med start. Shift Engineer Required: No Allergies citalopram Adverse Reaction (Mild, Verified 08/10/25 08:42) insomnia, palpitations Medication List - Last Reconciled 08/10/25 by Vannesa Davis, FIRE PREVENTION SPECIALIST- atorvastatin (Lipitor) 20 mg PO BEDTIME clonidine HCl 0.1 mg PO BEDTIME metformin ER 500 mg PO DAILY multivitamin with iron 1 tab PO DAILY omeprazole 40 mg PO DAILY Tobacco use date assessed: 08/10/25 Dental Screening Dental Screen Date: 08/10/25 Did you have a dental visit in the last 12 months?: Yes Did you have a dental problem in the last 6 months where you did not have access to dental care?: No Was dental information given to patient?: Patient has dentist HPI HPI Comments History of Present Illness Details 45 y/o M with GERD, barretts esoph, Fatt y liver, hld , obese, prediabetes, anemia, diverticulitis , fhx colon ca (dad), bladder wall thickening, genital warts SurgHx:: Appy age 14, Kidney surgery at [facility]: Dad: Lung Ca Schizophrenia. Mom Breast Ca SocHx: Nonsmoker, EtOH Occasional. No Drugs. 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 Anxiety with adverse effect of medication: - The patient was started on Celexa (cit alopram) for anxiety, which was increased to 40 mg. - The 40 mg dose caused insomnia, dizzin ess, and a racing heart. - The dose was decreased to 20 mg, but a fter 3-4 days, symptoms persisted, prompting the patient to discontinue the medication last Wednesday. - Since stopping, the racing heart has r esolved, and sleep is gradually improving. - Memory issues and confusion experience d while on citalopram have also resolv ed. - The patient does not wish to try any o ther medications for anxiety or sleep at this time and continues to take his clonidine. Rectal Bleeding: - The patient has a history of rectal bl eeding, for which he was referred to gastroenterology. - He has a GI appointment scheduled for October 26. - He reports no further episodes of rect al bleeding recently. Thickened Bladder Wall and Genital Warts: - The patient saw a urologist and was fo und to have a thickened bladder but without any worrisome symptoms such as difficulty urinating. - A test confirmed he is able to fully e mpty his bladder. - He is scheduled to return to urology i october for cryotherapy for genital warts. Hiatal Hernia: - The patient has a history of a hiatal hernia, which is expected to be evaluated during his upcoming GI procedure. Past Medical History - Anxiety - Rectal bleeding, resolved - Thickened bladder wall - Genital warts - Hiatal hernia - Adverse reaction to citalopram (insomn ia, palpitations, dizziness) - Hospital visit for an unspecified reas on Review of Systems - Neurological: Reports prior dizziness, memory issues and confusion, which have all resolved. Denies new neurological symptoms. - Cardiovascular: Reports prior racing h eart that has since resolved. - Gastrointestinal: Denies recent rectal bleeding. - Genitourinary: Denies problems with ur ination and reports ability to fully empty the bladder. - Constitutional: Reports prior insomnia , but notes sleep is now improving. - Extremities: Reports some swelling in the ankles. Physical Exam General: Well developed, well nourished, in no acute distress. Appears stated age. Head: Normocephalic, atraumatic. Eyes: Pupils are equal, round and reactive to light and accommodation. Conjunctivae are clear. Vision grossly normal. Lungs: Clear to auscultation bilaterally. No rales, rhonchi or wheeze noted. Good air flow in all jones. Heart: Regular rate and rhythm. No murmurs, click, rubs or gallops are noted. Musculoskeletal: Joints are nontender, without swelling, redness, or effusions. Pulses: Peripheral pulses are equal and palpable bilaterally. Extremities: No clubbing, cyanosis noted. trace edema BLE Psych: Mood and affect appropriate. Results - Urology Evaluation: Revealed a thicken ed bladder, which was deemed not concerning. - Post-void residual scan: Demonstrated complete bladder emptying. Medical Decision Making The patient is a 45-year-old male presenting for a follow-up visit for anxiety. He reported intolerable side effects from citalopram, including insomnia, racing heart, and dizziness, even after a dose reduction, and subsequently self- discontinued the medication. As his side effects have resolved and he has declined trying other medications, citalopram will be discontinued and documented as an intolerance. His other medical issues are being appropriately managed by specialists. He has a pending gastroenterology appointment for a history of rectal bleeding and hiatal hernia evaluation. His urology evaluation for a thickened bladder was reassuring, and he has a plan for cryotherapy for warts. The patient is due for routine screening labs, which were ordered for a future date, deferring the PSA to urology. He was counseled on receiving the HPV vaccine series at a local pharmacy. He will follow up in November for a physical. Plan 1. Anxiety - Citalopram will be discontinued due to intolerable side effects, including insomnia, racing heart, and dizziness. - The patient declined a trial of an alt ernative medication at this time. - He will continue taking clonidine as p rescribed. - Citalopram will be added to his allerg y list as an intolerance for future reference. 2. Rectal Bleeding - The patient reports no recent bleeding . - He will proceed with his scheduled gas troenterology appointment on October 26 for further evaluation. 3. Thickened Bladder Wall And Genital Wa rts - The patient's evaluation with urology was reassuring, and no immediate intervention is needed for the thickened bladder. - He will return to urology in October o begin cryotherapy for warts. - PSA testing will be deferred to and ma naged by urology. 4. Hiatal Hernia - This will be evaluated by the gastroen terologist during the upcoming upper and lower endoscopy. 5. Preventative Care - The patient was advised to obtain the three-shot HPV vaccine series from a pharmacy. - Orders were placed for repeat labs, in cluding cholesterol and B12, to be completed any time after November 11. - He is scheduled to return for a physic al in November. Patient Instructions - Stop taking Citalopram (Celexa). - Continue taking your other medications as prescribed, including clonidine. - Keep your appointment with the gastroe nterologist on October 26. - You should get the HPV vaccine, which is a series of three shots, at a pharmacy. - Please get your blood work done anytim e after November 11 at the lab here. You do not need to be fasting. - Schedule a follow-up appointment here for a physical in November. - If anything changes or you have any co ncerns, please contact us through the patient portal. Consent Patient was informed and verbally consented to the use of an ambient scribe for clinic note documentation during this visit. Total time spent caring for the patient today was 30 minutes. This includes time spent before the visit reviewing the chart, time spent during the visit, and time spent after the visit on documentation, reviewing laboratory results, diagnostic imaging, medications, performing a medically necessary evaluation, counseling on diagnoses, care coordination, ordering appropriate tests, ordering appropriate medications, review of tests performed by other providers, reporting test results with the patient, communication with other healthcare providers. [facility] Medical History Celiac disease Morbid obesity Family history of colon cancer in father History of Solano's esophagus GERD (gastroesophageal reflux disease) Surgical History History of colonoscopy (~2020) History of esophagogastroduodenoscopy (EGD) (~2020) History of appendectomy (~1993) Family History Mother No problems noted. 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 Current occupational exposures/hazards: No Cognitive needs: No Hearing needs: No Vision needs: No Questionnaire Thrive Questionnaire Date Thrive assessed: 07/31/25 I am a: Patient What is your living situation today?: I have a steady place to live Within the past 12 months, did the food you bought not last and you didn't have the money to get more?: Never true Within the past 12 months, did you worry whether your food would run out before you got money to buy more?: Never true Do you have trouble paying for medicines?: No Do you have trouble getting transportation to medical appointments?: No Do you have trouble paying your heating and electricity bill?: No Do you have trouble taking care of your child, family member or friend?: No Do you have trouble with day-to-day activities such as bathing, preparing meals, shopping, managing finances, etc.?: No Are you currently unemployed and looking for a job?: No Are you interested in more education?: No Please select the resources that you would like help with: None Currently or been in a relationship where the following occur: No concerns reported THRIVE Score: 0 HASMUKH-7 AMB Questionnaire HASMUKH-7 Date HASMUKH - 7 assessed: 12/04/24 Source: Developed by Drs. Ariel Whittington, Lanette Macario, Blaine Mauricio and colleagues, with an educational tawanda from [employer]. Physical exam (Primary Care) Vital Signs: Last Vital Signs Temp 97.2 F 08/10/25 08:26 Pulse 93 08/10/25 08:26 Resp 13 08/10/25 08:26 BP 132/70 08/10/25 08:26 Pulse Ox 97 08/10/25 08:26 Oxygen Delivery Method Room Air 08/10/25 08:26 BMI result Body Mass Index 42.5 Tobacco/Smoking Status: Tobacco use Status Tobacco use date assessed 08/10/25 08/10/25 08:28 Patient Tobacco Use Status Never used Tobacco 08/10/25 08:28 e-Cigarette/Vaping Use Never Used 08/10/25 08:28 Thrive Assessment: Date of Thrive Assessment Date Thrive assessed 07/31/25 08/10/25 08:28 Currently or been in a relationship where the following occur: No concerns reported Coding Level of Care Code Est Pt Level 4 (50080) Complex EM visit Add On G2211 Diagnoses Iron deficiency anemia, unspecified iron deficiency anemia type D50.9 Iron deficiency anemia type: unspecified iron deficiency HASMUKH (generalized anxiety disorder) F41.1 Alcohol induced insomnia F10.982 Bladder wall thickening N32.89 Warts, genital A63.0 Assessment & Plan Assessment & Plan (1) Iron deficiency anemia: Code(s): D50.9 - Iron deficiency anemia, unspecified Category: Medical Qualifiers: Iron deficiency anemia type: unspecified iron deficiency Qualified Code(s): D50.9 - Iron deficiency anemia, unspecified (2) HASMUKH (generalized anxiety disorder): Code(s): F41.1 - Generalized anxiety disorder Category: Medical (3) Alcohol induced insomnia: Code(s): F10.982 - Alcohol use, unspecified with alcohol-induced sleep disorder Category: Medical (4) Bladder wall thickening: Code(s): N32.89 - Other specified disorders of bladder Category: Medical (5) Warts, genital: Code(s): A63.0 - Anogenital (venereal) warts Category: Medical Plan . Orders: Orders Complete Blood Count no Diff 11/11/25 D50.9 - Iron deficiency anemia, unspecified, E78.2 - Mixed hyperlipidemia, I15.8 - Other secondary hypertension, R73.03 - Prediabetes Comprehensive Met. Panel 11/11/25 D50.9 - Iron deficiency anemia, unspecified, E78.2 - Mixed hyperlipidemia, I15.8 - Other secondary hypertension, R73.03 - Prediabetes Hemoglobin A1c 11/11/25 D50.9 - Iron deficiency anemia, unspecified, E78.2 - Mixed hyperlipidemia, I15.8 - Other secondary hypertension, R73.03 - Prediabetes Microalbumin, Random (w Creat) 11/11/25 D50.9 - Iron deficiency anemia, unspeci fied, E78.2 - Mixed hyperlipidemia, I15.8 - Other secondary hypertension, R73.03 - Prediabetes Vitamin B12 and Folate 11/11/25 D50.9 - Iron deficiency anemia, unspecified, E 78.2 - Mixed hyperlipidemia, I15.8 - Other secondary hypertension, R73.03 - Prediabetes Vitamin D 25-OH Total 11/11/25 D50.9 - Iron deficiency anemia, unspecified, E78.2 - Mixed hyperlipidemia, I15.8 - Other secondary hypertension, R73.03 - Prediabetes Ferritin 11/11/25 D50.9 - Iron deficiency anemia, unspecified Lipid Panel 11/11/25 D50.9 - Iron deficiency anemia, unspecified, E78.2 - Mixed hyperlipidemia, I15.8 - Other secondary hypertension, R73.03 - Prediabetes IRON PROFILE 11/11/25 D50.9 - Iron deficiency anemia, unspecified
[2025-08-10 08:26] VITALS: BP 132/70; PULSE 93; RESP 13; TEMP 36.2; O2SAT 97; BMI 42.5
== END 2025-08-10 08:42 | disposition home or self-care (01) ==
LOC: HO.HMCFM 08:23
PROVIDERS: PCP Nurse Practitioner Family; Visit Provider Nurse Practitioner Family
DX: D50.9 Iron deficiency anemia, unspecified (principal); F41.1 Generalized anxiety disorder; F10.982 Alcohol use, unspecified with alcohol-induced sleep disorder; N32.89 Other specified disorders of bladder; A63.0 Anogenital (venereal) warts